=== PATIENT | female | born 1985 | race Caucasian/White ===

== ENCOUNTER 2016-09-09 10:06 | Inpatient (IN) | payer OTHER ==
[2016-09-09 10:59] VITALS: BMI 24.7
--- NOTE | 2016-09-09 13:22 | HP ---
CIWA Score - CIWA Score Nausea/Vomitin-No Nausea/No Vomiting Muscle Tremors: 4-Moderate,w/Arms Extend Anxiety: 4-Mod. Anxious/Guarded Agitation: 3 Paroxysmal Sweats: 1-Minimal Palms Moist Orientation: 0-Oriented Tacttile Disturbances: 3-Moderate Itch/Numb/Burn Auditory Disturbances: 0-None Visual Disturbances: 0-None Headache: 2-Mild CIWA-Ar Total Score: 17 Admission ROS S - HPI Chief Complaint: DETOX TX FOR XANAX/KLONOPIN DEPENDENCE Allergies/Adverse Reactions: Allergies Allergy/AdvReac Type Severity Reaction Status Date / Time No Known Allergies Allergy Verified 09/09/16 11:44 History of Present Illness: 31 Y/O FEMALE WITH A HX OF XANAX/KLONOPIN, AND MARIUANA DEPENDENCE AND SPORADIC PCP USE. Exam Limitations: No Limitations - Ebola screening Have you traveled outside of the country in the last 21 days: No Have you had contact with anyone from an Ebola affected area: No Have you been sick,other than usual withdrawal symptoms: No Do you have a fever: No - Review of Systems Constitutional: Chills, Loss of Appetite, Night Sweats, Changes in sleep, Unintentional Wgt. Loss EENT: reports: Blurred Vision, Tearing, Nose Congestion, Dental Problems ( MISSING TEETH) Respiratory: reports: Shortness of Breath (USES SPIRIVA AND ALBUTEROL), Wheezing Cardiac: reports: Lightheadedness GI: reports: Constipated, Diarrhea, Nausea, Poor Appetite, Poor Fluid Intake, Vomiting, Abdominal cramping : reports: No Symptoms Reported Musculoskeletal: reports: Back Pain, Joint Pain, Muscle Pain, Other (HX SCIATICA ) Integumentary: reports: No Symptoms Reported Neuro: reports: Headache, Tremors, Unsteady Gait, Dizziness Endocrine: reports: No Symptoms Reported Hematology: reports: Anemia Psychiatric: reports: Orientated x3, Anxious, Depressed Other Systems: Reviewed and Negative Patient History - Patient Medical History Hx Anemia: No Hx Asthma: Yes (currently not on medication;SPIRIVA/ALBUTEROL IN THE PAST) Hx Chronic Obstructive Pulmonary Disease (COPD): No Hx Cancer: No Hx Cardiac Disorders: No Hx Congestive Heart Failure: No Hx Hypertension: Yes (WITHDRAWAL SX) Hx Hypercholesterolemia: No Hx Pacemaker: No HX Cerebrovascular Accident: No Hx Seizures: Yes (STATES DUE TO WITHDRAWAL SX) Hx Dementia: No Hx Diabetes: No Hx Gastrointestinal Disorders: No Hx Liver Disease: No Hx Genitourinary Disorders: No Hx Sexually Transmitted Disorders: No (chlamydia at age 22) Hx Renal Disease (ESRD): No Hx Thyroid Disease: No Hx Human Immunodeficiency Virus (HIV): No (06/01 last tested;NEGATIVE HX) Hx Hepatitis C: No Hx Depression: Yes (AND ANXIETY; NO CURRENT MED) Hx Suicide Attempt: No (DENIES) Hx Bipolar Disorder: No Hx Schizophrenia: No - Patient Surgical History Past Surgical History: Yes Hx Neurologic Surgery: No Hx Cataract Extraction: No Hx Cardiac Surgery: No Hx Lung Surgery: No Hx Breast Surgery: No Hx Breast Biopsy: No Hx Abdominal Surgery: No Hx Appendectomy: No Hx Cholecystectomy: No Hx Genitourinary Surgery: Yes (removal of ovarian cyst in ) Hx Section: No Hx Orthopedic Surgery: No Hx Hysterectomy: No Other Surgical History: tonsillectomy at age 8 Anesthesia Reaction: No - PPD History Previous Implant?: Yes Documented Results: Negative w/proof Implanted On Prior [facility] Admission?: Yes Date: 11/25/15 Results: 0 mm PPD to be Administered?: No - Reproductive History Patient is a Female of Child Bearing Age (11 -55 yrs old): Yes Last Menstrual Period: 08/07/16 Patient : No - Smoking Cessation Smoking history: Current every day smoker Have you smoked in the past 12 months: Yes Aproximately how many cigarettes per day: 20 Cigars Per Day: 0 Hx Chewing Tobacco Use: No Initiated information on smoking cessation: Yes 'Breaking Loose' booklet given: 09/09/16 - Substance & Tx. History Hx Alcohol Use: Yes (OCCASSIONAL USE) Hx Substance Use: (XANAX/KLONOPIN/MARIJUANA/PCP(ON OCCASSION)) Substance Use Type: Marijuana, Tranquilizers Hx Substance Use Treatment: Yes ([facility] 100 MG PO DAILY) - Substances Abused PCP Route: Smoking Frequency: 1-3 times last 30 days Amount used: $10 Age of first use: 18 Date of Last Use: 09/08/16 Klonopin Route: Oral Frequency: Daily Amount used: 4 mg. Age of first use: 30 Date of Last Use: 09/08/16 Xanax Route: Oral Frequency: 3-6 times per week Amount used: 5 mg. Age of first use: 30 Date of Last Use: 09/08/16 Marijuana Route: Smoking Frequency: 3-6 times per week Amount used: $5 Age of first use: 15 Date of Last Use: 09/05/16 Family Disease History - Family Disease History Family Disease History: Other: Father (alcohol,dsa), Mother (alcohol ) Admission Physical Exam [facility] - Vital Signs Vital Signs: Vital Signs - 24 hr 09/09/16 10:56 Temperature 97.8 F Pulse Rate 91 H Respiratory 20 Rate Blood Pressure 135/95 - Physical General Appearance: Yes: Moderate Distress, Irritable, Anxious HEENTM: Yes: EOMI, Normocephalic, SEJAL, Pharynx Normal Respiratory: Yes: Chest Non-Tender, Lungs Clear, Normal Breath Sounds, No Respiratory Distress Neck: Yes: Supple, Trachea in good position Breast: Yes: Breast Exam Deferred Cardiology: Yes: Regular Rhythm, Regular Rate, S1, S2 Abdominal: Yes: Normal Bowel Sounds, Non Tender, Flat, Soft Genitourinary: Yes: Other (N/C) Back: Yes: Within Normal Limits Musculoskeletal: Yes: full range of Motion, Gait Steady Extremities: Yes: Normal Range of Motion, Non-Tender 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 NML intact, Fully Oriented, Alert, Motor Strength 5/5 Integumentary: Yes: Dry, Warm Lymphatic: Yes: Within Normal Limits - Diagnostic (1) Nicotine dependence Current Visit: Yes Status: Acute Qualifiers: Nicotine product type: cigarettes Substance use status: in withdrawal Qualified Code(s): F17.213 - Nicotine dependence, cigarettes, with withdrawal (2) Seizure Current Visit: Yes Status: Suspected Comment: NOT SURE, BUT STATES DUE TO WITHDRAWAL SX (3) Sedative, hypnotic or anxiolytic dependence with withdrawal, uncomplicated Current Visit: Yes Status: Acute (4) Methadone maintenance therapy patient Current Visit: Yes Status: Chronic (5) Cannabis dependence, uncomplicated Current Visit: Yes Status: Acute (6) PCP abuse Current Visit: Yes Status: Acute Cleared for Admission [facility] - Detox or Rehab [facility] Level of Care: Medically Managed Detox Regimen/Protocol: Valium [facility] Breath Alcohol Content Breath Alcohol Content: 0 Urine Pregancy Test - Result Urine Test Results: Negative- NO Line Present Urine Drug Screen - Results Drug Screen Negative: No Urine Drug Screen Results: THC-Marijuana, PCP-Phencyclidine, BZO-Benzodiazepines , MTD-Methadone, TCA-Tricyclic Antidepress
[2016-09-09] MEDS ORDERED: ACETAMINOPHEN 325 MG TABLET (FP) PO PRN (13:36)
[2016-09-09] MEDS ORDERED: diphenhydrAMINE HCL 50 MG CAPSULE PO PRN (13:36)
[2016-09-09] MEDS ORDERED: MAGNESIUM HYDROX 2400MG/30ML ORAL SUSPENSION 30 ML CUP PO PRN (13:36)
[2016-09-09] MEDS ORDERED: hydrOXYzine PAMOATE 25 MG CAPSULE (FP) PO PRN (13:36)
[2016-09-09] MEDS ORDERED: MENTHOL/PHENOL 1 EACH UD MM PRN (13:36)
[2016-09-09] MEDS ORDERED: guaiFENesin/D-METHORPHAN HB 10 ML UNIT-DOSE CUPS PO PRN (13:36)
[2016-09-09] MEDS ORDERED: MAG HYDROX/AL HYDROX/SIMETH 30 ML UNIT-DOSE CUP PO PRN (13:36)
[2016-09-09] MEDS ORDERED: LOPERAMIDE HCL 2 MG CAPSULE PO PRN (13:36)
[2016-09-09] MEDS ORDERED: P-EPHED 60MG/TRIPROLIDI 2.5MG TABLET PO PRN (13:36)
[2016-09-09] MEDS ORDERED: MAGNESIUM CITRATE 300 ML BOTTLE PO PRN (13:36)
[2016-09-09] MEDS ORDERED: diazePAM 5 MG TABLET PO ONE (13:52)
[2016-09-09] MEDS: diazePAM 5 MG TABLET PO SCH ×2 (14:06→22:39)
[2016-09-09] MEDS: NICOTINE 21 MG/24 HOURS TOPICAL PATCH TD SCH (14:07)
[2016-09-09 16:48] LABS: URINE APPEARANCE SLCLOUDY; URINE BLOOD NEGATIVE (NEGATIVE); URINE COLOR DKYELLOW; URINE GLUCOSE (UA) NEGATIVE (NEGATIVE); URINE KETONE TRACE (NEGATIVE); URINE NITRITE NEGATIVE (NEGATIVE); URINE UROBILINOGEN 2.0 E.U/dl E.U./dl (0.2-1.0)
[2016-09-09] MEDS: diazePAM 5 MG TABLET PO PRN (17:16)
[2016-09-09 17:32] LABS: URINE LEUK ESTERASE TRACE (NEGATIVE); URINE PROTEIN 1+ (NEGATIVE)
[2016-09-09 17:36] LABS: CALCIUM OXALATE CRYSTALS FEW /hpf (NONE SEEN); URINE MUCUS MANY; URINE RBC 3 /hpf (0-3); URINE WBC 1 /hpf (3-5)
[2016-09-09] MEDS: THIAMINE HCL 100 MG TABLET (FP) PO SCH (22:40)
[2016-09-10] MEDS ORDERED: METHADONE HCL 10 MG TABLET ONE (04:38)
[2016-09-10] MEDS ORDERED: METHADONE HCL 40 MG DISPERSABLE TABLET ONE (04:39)
[2016-09-10] MEDS: diazePAM 5 MG TABLET PO PRN ×4 (05:38→19:43)
[2016-09-10] MEDS: METHADONE 80 MG, METHADONE 20 MG PO SCH (05:38)
[2016-09-10] MEDS ORDERED: METHADONE HCL 10 MG TABLET PO SCH (06:00)
[2016-09-10] MEDS: diazePAM 5 MG TABLET PO SCH ×3 (06:29→22:50)
--- NOTE | 2016-09-10 07:43 | CONSULT ---
[facility] Psychiatric Consult - Data Date of interview: 09/10/16 Admission source: [facility] Identifying data: This is 31 years old female with no psychiatric hospitalization history intoxicated with : Cannabis, Xanax, PCP, Alcohol Substance Abuse History: - Smoking Cessation. Smoking history: Current every day smoker. Have you smoked in the past 12 months: Yes. Aproximately how many cigarettes per day: 20. Cigars Per Day: 0. Hx Chewing Tobacco Use: No. Initiated information on smoking cessation: Yes. 'Breaking Loose' booklet given : 09/09/16. - Substance & Tx. History. Hx Alcohol Use: Yes (OCCASSIONAL USE). Hx Substance Use: (XANAX/KLONOPIN/MARIJUANA/PCP(ON OCCASSION)). Substance Use Type: Marijuana, Tranquilizers. Hx Substance Use Treatment: Yes ([facility]- MMTP 100 MG PO DAILY). - Substances Abused. PCP. Route: Smoking. Frequency: 1-3 times last 30 days. Amount used: $10. Age of first use: 18. Date of Last Use: 09/08/16. Klonopin. Route: Oral. Frequency: Daily. Amount used: 4 mg. Age of first use: 30. Date of Last Use: 09/08/16. Xanax. Route: Oral. Frequency: 3-6 times per week. Amount used: 5 mg. Age of first use: 30. Date of Last Use: 09/08/16. Marijuana. Route: Smoking. Frequency: 3-6 times per week. Amount used: $5. Age of first use: 15. Date of Last Use: 09/05/16 Medical History: Seizure history, Syncope history, Weight loss history Psychiatric History: Patient reports insomnia and anxiety history, reports takinmg prior to admsision: Seroquel 50mg po qhs Physical/Sexual Abuse/Trauma History: Denies Additional Comment: Seroquel 50mg po qhs Mental Status Exam - Mental Status Exam Alert and Oriented to: Person Cognitive Function: Fair Patient Appearance: Unkempt Mood: Anxious Affect: Mood Congruent Patient Behavior: Cooperative Speech Pattern: Appropriate Voice Loudness: Normal Thought Process: Goal Oriented Thought Disorder: Being Controlled Hallucinations: Denies Suicidal Ideation: Denies Homicidal Ideation: Denies Insight/Judgement: Fair Sleep: Difficulty falling asleep Appetite: Fair Muscle strength/Tone: Normal Gait/Station: Normal Additional Comments: Seroquel 50mg po qhs Psychiatric Findings - Problem List ([place] 1, 2,3) (1) Cannabis dependence, uncomplicated Current Visit: Yes Status: Acute (2) Nicotine dependence Current Visit: Yes Status: Acute Qualifiers: Nicotine product type: cigarettes Substance use status: in withdrawal Qualified Code(s): F17.213 - Nicotine dependence, cigarettes, with withdrawal (3) PCP abuse Current Visit: Yes Status: Acute (4) Sedative, hypnotic or anxiolytic dependence with withdrawal, uncomplicated Current Visit: Yes Status: Acute (5) Methadone maintenance therapy patient Current Visit: Yes Status: Chronic (6) Opioid dependence Current Visit: No Status: Active (7) Alcohol dependence Current Visit: No Status: Acute (8) Alcohol-induced mood disorder Current Visit: No Status: Acute (9) Alcohol-induced sleep disorder Current Visit: No Status: Acute (10) Drug-induced mood disorder Current Visit: Yes Status: Acute - Initial Treatment Plan Initial Treatment Plan: Seroquel 50mg po qhs
[2016-09-10 10:20] LABS: MCH 28.3 pg (25.7-33.7); MCHC 32.5 g/dl (32.0-36.0); MEAN CELL VOLUME 87.1 fl (80-96); MEAN PLT VOLUME 9.4 fl (7.5-11.1); PLATELET COUNT 264 K/MM3 (134-434); RDW 15.7 % (11.6-15.6); WHITE BLOOD COUNT 8.8 K/mm3 (4.0-10.0)
[2016-09-10] MEDS: PRENATAL VITAMINS W/ FOLIC ACID TABLET (FP) PO SCH (10:31)
[2016-09-10] MEDS: NICOTINE 21 MG/24 HOURS TOPICAL PATCH TD SCH (10:32)
[2016-09-10 10:45] LABS: ALBUMIN 4.4 g/dl (3.4-5.0); ALK PHOS 116 U/L (45-117); ANION GAP 6 (8-16); BILIRUBIN,TOTAL 0.7 mg/dL (0.2-1.0); CALCIUM 9.6 mg/dL (8.5-10.1); CO2 30 mmol/L (21-32); GLUCOSE,RANDOM 74 mg/dL (74-106); SGOT/AST 15 U/L (15-37); SGPT/ALT 15 U/L (12-78); TOT PROT 7.7 g/dl (6.4-8.2)
--- NOTE | 2016-09-10 11:49 | PN ---
S CIWA - CIWA Score Nausea/Vomitin-No Nausea/No Vomiting Muscle Tremors: 4-Moderate,w/Arms Extend Anxiety: 4-Mod. Anxious/Guarded Agitation: 4-Moderately Restless Paroxysmal Sweats: 3 Orientation: 0-Oriented Tacttile Disturbances: 0-None Auditory Disturbances: 0-None Visual Disturbances: 0-None Headache: 1-Very Mild CIWA-Ar Total Score: 16 [facility] Progress Note (SOAP) Subjective: sweats shakes interrupted sleep agitation anxiety i want ensure Objective: 09/10/16 11:45 Vital Signs Temperature 98.2 F 09/10/16 10:29 Pulse Rate 61 09/10/16 10:29 Respiratory Rate 20 09/10/16 10:29 Blood Pressure 110/72 09/10/16 10:29 O2 Sat by Pulse Oximetry (%) Laboratory Tests 09/09/16 09/10/16 09/10/16 14:00 06:20 06:20 WBC 8.8 RBC 5.04 Hgb 14.3 Hct 43.9 MCV 87.1 MCHC 32.5 RDW 15.7 H Plt Count 264 MPV 9.4 Sodium 142 Potassium 4.4 Chloride 106 Carbon Dioxide 30 Anion Gap 6 L BUN 9 D Creatinine 1.0 Creat Clearance w eGFR > 60 Random Glucose 74 D Calcium 9.6 Total Bilirubin 0.7 D AST 15 D ALT 15 D Alkaline Phosphatase 116 Total Protein 7.7 Albumin 4.4 Urine Color Dkyellow Urine Appearance Slcloudy Urine pH 5.0 Ur Specific [place] 1.028 Urine Protein 1+ H Urine Glucose (UA) Negative Urine Ketones Trace H Urine Blood Negative Urine Nitrite Negative Urine Bilirubin 2.0 Urine Urobilinogen 2.0 e.u/dl H Ur Leukocyte Esterase Trace H D Urine RBC 3 Urine WBC 1 Ur Epithelial Cells Few Calcium Oxalate Crystal Few Urine Mucus Many awake/alert ambulating no acute distress repeat u/a Assessment: 09/10/16 11:47 withdrawal sx Plan: continue detox increase fluids ensure plus bid f/u u/a
[2016-09-10] MEDS: NICOTINE POLACRILEX 4 MG GUM BUC PRN ×3 (13:19→22:53)
[2016-09-10 14:44] LABS: URINE APPEARANCE SLCLOUDY; URINE BILIRUBIN NEGATIVE (NEGATIVE); URINE BLOOD NEGATIVE (NEGATIVE); URINE COLOR YELLOW; URINE GLUCOSE (UA) NEGATIVE (NEGATIVE); URINE KETONE NEGATIVE (NEGATIVE); URINE LEUK ESTERASE TRACE (NEGATIVE); URINE NITRITE NEGATIVE (NEGATIVE); URINE PROTEIN NEGATIVE (NEGATIVE); URINE UROBILINOGEN 2.0 E.U/dl E.U./dl (0.2-1.0)
[2016-09-10 15:19] LABS: URINE MUCUS MODERATE; URINE RBC 1 /hpf (0-3); URINE WBC <1 /hpf (3-5)
--- NOTE | 2016-09-10 16:12 | EKG ---
Test Reason : Blood Pressure : / mmHG Vent. Rate : 048 BPM Atrial Rate : 048 BPM P-R Int : 126 ms QRS Dur : 084 ms QT Int : 492 ms P-R-T Axes : 065 062 037 degrees QTc Int : 439 ms SINUS BRADYCARDIA POSSIBLE LEFT ATRIAL ENLARGEMENT NONSPECIFIC ST AND T WAVE ABNORMALITY ABNORMAL ECG NO PREVIOUS ECGS AVAILABLE Confirmed by GER CÁRDENAS MD ([id number]) on 09/10/2016 4:12:35 PM Referred By: Confirmed By:GER CÁRDENAS MD
[2016-09-10] MEDS: IBUPROFEN 400 MG TABLET (FP) PO PRN (16:21)
[2016-09-10] MEDS: QUEtiapine FUMARATE 50 MG TABLET PO SCH (22:50)
[2016-09-10] MEDS: THIAMINE HCL 100 MG TABLET (FP) PO SCH (22:50)
[2016-09-11] MEDS: diazePAM 5 MG TABLET PO PRN ×4 (01:12→19:10)
[2016-09-11] MEDS: NICOTINE POLACRILEX 4 MG GUM BUC PRN ×5 (01:16→19:10)
[2016-09-11] MEDS ORDERED: METHADONE HCL 40 MG DISPERSABLE TABLET ONE (05:03)
[2016-09-11] MEDS ORDERED: METHADONE HCL 10 MG TABLET ONE (05:03)
[2016-09-11] MEDS: METHADONE 80 MG, METHADONE 20 MG PO SCH (05:41)
[2016-09-11] MEDS: IBUPROFEN 400 MG TABLET (FP) PO PRN (07:06)
--- NOTE | 2016-09-11 10:27 | PN ---
[facility] Progress Note (SOAP) Subjective: interrupted sleep, sweats , lbp Objective: 09/11/16 10:27 Vital Signs Temperature 97.6 F 09/11/16 09:55 Pulse Rate 76 09/11/16 09:55 Respiratory Rate 20 09/11/16 09:55 Blood Pressure 114/60 09/11/16 09:55 O2 Sat by Pulse Oximetry (%) Laboratory Tests 09/09/16 09/10/16 09/10/16 14:00 06:20 06:20 WBC 8.8 RBC 5.04 Hgb 14.3 Hct 43.9 MCV 87.1 MCHC 32.5 RDW 15.7 H Plt Count 264 MPV 9.4 Sodium 142 Potassium 4.4 Chloride 106 Carbon Dioxide 30 Anion Gap 6 L BUN 9 D Creatinine 1.0 Creat Clearance w eGFR > 60 Random Glucose 74 D Calcium 9.6 Total Bilirubin 0.7 D AST 15 D ALT 15 D Alkaline Phosphatase 116 Total Protein 7.7 Albumin 4.4 Urine Color Dkyellow Urine Appearance Slcloudy Urine pH 5.0 Ur Specific [place] 1.028 Urine Protein 1+ H Urine Glucose (UA) Negative Urine Ketones Trace H Urine Blood Negative Urine Nitrite Negative Urine Bilirubin 2.0 Urine Urobilinogen 2.0 e.u/dl H Ur Leukocyte Esterase Trace H D Urine RBC 3 Urine WBC 1 Ur Epithelial Cells Few Calcium Oxalate Crystal Few Urine Mucus Many RPR Titer 09/10/16 09/10/16 06:20 13:15 WBC RBC Hgb Hct MCV MCHC RDW Plt Count MPV Sodium Potassium Chloride Carbon Dioxide Anion Gap BUN Creatinine Creat Clearance w eGFR Random Glucose Calcium Total Bilirubin AST ALT Alkaline Phosphatase Total Protein Albumin Urine Color Yellow Urine Appearance Slcloudy Urine pH 5.0 Ur Specific [place] 1.024 Urine Protein Negative Urine Glucose (UA) Negative Urine Ketones Negative Urine Blood Negative Urine Nitrite Negative Urine Bilirubin Negative Urine Urobilinogen 2.0 e.u/dl H Ur Leukocyte Esterase Trace H Urine RBC 1 Urine WBC <1 Ur Epithelial Cells Moderate Calcium Oxalate Crystal Urine Mucus Moderate RPR Titer Nonreactive 09/11/16 11:47 pt aox3 in nad ambulating , anxious Assessment: 09/11/16 10:27 withdrawal sx;s Plan: cont. detox increase fluids d/c in am -pt going to rehab
[2016-09-11] MEDS: PRENATAL VITAMINS W/ FOLIC ACID TABLET (FP) PO SCH (10:32)
[2016-09-11] MEDS: NICOTINE 21 MG/24 HOURS TOPICAL PATCH TD SCH (10:32)
[2016-09-11] MEDS: diazePAM 5 MG TABLET PO SCH ×2 (10:34→22:28)
[2016-09-11] MEDS: THIAMINE HCL 100 MG TABLET (FP) PO SCH (22:27)
[2016-09-11] MEDS: QUEtiapine FUMARATE 50 MG TABLET PO SCH (22:27)
[2016-09-12] MEDS: diazePAM 5 MG TABLET PO PRN ×3 (01:07→12:58)
[2016-09-12] MEDS ORDERED: METHADONE HCL 10 MG TABLET ONE (04:52)
[2016-09-12] MEDS ORDERED: METHADONE HCL 40 MG DISPERSABLE TABLET ONE (04:53)
[2016-09-12] MEDS: METHADONE 80 MG, METHADONE 20 MG PO SCH (05:38)
[2016-09-12] MEDS: IBUPROFEN 400 MG TABLET (FP) PO PRN (07:37)
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
[2016-09-12] MEDS: PRENATAL VITAMINS W/ FOLIC ACID TABLET (FP) PO SCH (10:31)
[2016-09-12] MEDS: diazePAM 5 MG TABLET PO SCH ×2 (10:31→22:28)
[2016-09-12] MEDS: NICOTINE 21 MG/24 HOURS TOPICAL PATCH TD SCH (10:32)
[2016-09-12] MEDS: SILVER SULFADIAZINE 1% TOP CREAM 50 GM JAR TP SCH ×2 (10:38→22:31)
--- NOTE | 2016-09-12 12:25 | PN ---
[facility] Progress Note (SOAP) Subjective: Sweating, Fatigue, Body aches, Back Ache. Pt. denies any unusual urinary symptoms (burning, pain, frequency, lower abdominal discomfort). Objective: PT. A & O X 3, OBSERVED AMBULATING ON UNIT. 09/12/16 12:23 Vital Signs Temperature 98.6 F 09/12/16 10:03 Pulse Rate 67 09/12/16 10:03 Respiratory Rate 20 09/12/16 10:03 Blood Pressure 112/68 09/12/16 10:03 O2 Sat by Pulse Oximetry (%) Laboratory Last Values WBC 8.8 K/mm3 (4.0-10.0) 09/10/16 06:20 RBC 5.04 M/mm3 (3.60-5.2) 09/10/16 06:20 Hgb 14.3 GM/dL (10.7-15.3) 09/10/16 06:20 Hct 43.9 % (32.4-45.2) 09/10/16 06:20 MCV 87.1 fl (80-96) 09/10/16 06:20 MCHC 32.5 g/dl (32.0-36.0) 09/10/16 06:20 RDW 15.7 % (11.6-15.6) H 09/10/16 06:20 Plt Count 264 K/MM3 (134-434) 09/10/16 06:20 MPV 9.4 fl (7.5-11.1) 09/10/16 06:20 Sodium 142 mmol/L (136-145) 09/10/16 06:20 Potassium 4.4 mmol/L (3.5-5.1) 09/10/16 06:20 Chloride 106 mmol/L (98-107) 09/10/16 06:20 Carbon Dioxide 30 mmol/L (21-32) 09/10/16 06:20 Anion Gap 6 (8-16) L 09/10/16 06:20 BUN 9 mg/dL (7-18) D 09/10/16 06:20 Creatinine 1.0 mg/dL (0.55-1.02) 09/10/16 06:20 Creat Clearance w eGFR > 60 (>60) 09/10/16 06:20 Random Glucose 74 mg/dL (74-106) D 09/10/16 06:20 Calcium 9.6 mg/dL (8.5-10.1) 09/10/16 06:20 Total Bilirubin 0.7 mg/dL (0.2-1.0) D 09/10/16 06:20 AST 15 U/L (15-37) D 09/10/16 06:20 ALT 15 U/L (12-78) D 09/10/16 06:20 Alkaline Phosphatase 116 U/L (45-117) 09/10/16 06:20 Total Protein 7.7 g/dl (6.4-8.2) 09/10/16 06:20 Albumin 4.4 g/dl (3.4-5.0) 09/10/16 06:20 Urine Color Yellow 09/10/16 13:15 Urine Appearance Slcloudy 09/10/16 13:15 Urine pH 5.0 (5.0-8.0) 09/10/16 13:15 Ur Specific [place] 1.024 (1.001-1.035) 09/10/16 13:15 Urine Protein Negative (NEGATIVE) 09/10/16 13:15 Urine Glucose (UA) Negative (NEGATIVE) 09/10/16 13:15 Urine Ketones Negative (NEGATIVE) 09/10/16 13:15 Urine Blood Negative (NEGATIVE) 09/10/16 13:15 Urine Nitrite Negative (NEGATIVE) 09/10/16 13:15 Urine Bilirubin Negative (NEGATIVE) 09/10/16 13:15 Urine Urobilinogen 2.0 e.u/dl E.U./dl (0.2-1.0) H 09/10/16 13:15 Ur Leukocyte Esterase Trace (NEGATIVE) H 09/10/16 13:15 Urine RBC 1 /hpf (0-3) 09/10/16 13:15 Urine WBC <1 /hpf (3-5) 09/10/16 13:15 Ur Epithelial Cells Moderate /hpf (FEW) 09/10/16 13:15 Calcium Oxalate Crystal Few /hpf (NONE SEEN) 09/09/16 14:00 Urine Mucus Moderate 09/10/16 13:15 RPR Titer Nonreactive (NONREACTIVE) 09/10/16 06:20 LABS NOTED. Assessment: 09/12/16 12:25 WITHDRAWAL SYMPTOMS. Plan: CONTINUE DETOX. INCREASE PO FLUIDS.
[2016-09-12] MEDS: NICOTINE POLACRILEX 4 MG GUM BUC PRN ×2 (13:02→22:31)
[2016-09-12] MEDS: QUEtiapine FUMARATE 50 MG TABLET PO SCH (22:28)
[2016-09-12] MEDS: THIAMINE HCL 100 MG TABLET (FP) PO SCH (22:28)
[2016-09-13] MEDS ORDERED: METHADONE HCL 10 MG TABLET ONE (04:55)
[2016-09-13] MEDS ORDERED: METHADONE HCL 40 MG DISPERSABLE TABLET ONE (04:55)
[2016-09-13] MEDS: METHADONE 80 MG, METHADONE 20 MG PO SCH (06:12)
[2016-09-13 06:59] VITALS: BP 134/85; PULSE 85; TEMP 97.3
[2016-09-13] MEDS ORDERED: diazePAM 5 MG TABLET PO SCH (10:00)
--- NOTE | 2016-09-13 11:07 | DS ---
[facility] Detox Discharge Summary Admission Date: 09/09/16 Discharge Date: 09/13/16 - History Present History: Alcohol Dependence Pertinent Past History: Asthma, HTN, seizures - Physical Exam Results Vital Signs: Vital Signs Temperature 97.3 F L 09/13/16 06:00 Pulse Rate 85 09/13/16 06:00 Respiratory Rate 18 09/13/16 06:00 Blood Pressure 134/85 09/13/16 06:00 O2 Sat by Pulse Oximetry (%) Pertinent Admission Physical Exam Findings: withdrawal sx Laboratory Last Values WBC 8.8 K/mm3 (4.0-10.0) 09/10/16 06:20 RBC 5.04 M/mm3 (3.60-5.2) 09/10/16 06:20 Hgb 14.3 GM/dL (10.7-15.3) 09/10/16 06:20 Hct 43.9 % (32.4-45.2) 09/10/16 06:20 MCV 87.1 fl (80-96) 09/10/16 06:20 MCHC 32.5 g/dl (32.0-36.0) 09/10/16 06:20 RDW 15.7 % (11.6-15.6) H 09/10/16 06:20 Plt Count 264 K/MM3 (134-434) 09/10/16 06:20 MPV 9.4 fl (7.5-11.1) 09/10/16 06:20 Sodium 142 mmol/L (136-145) 09/10/16 06:20 Potassium 4.4 mmol/L (3.5-5.1) 09/10/16 06:20 Chloride 106 mmol/L (98-107) 09/10/16 06:20 Carbon Dioxide 30 mmol/L (21-32) 09/10/16 06:20 Anion Gap 6 (8-16) L 09/10/16 06:20 BUN 9 mg/dL (7-18) D 09/10/16 06:20 Creatinine 1.0 mg/dL (0.55-1.02) 09/10/16 06:20 Creat Clearance w eGFR > 60 (>60) 09/10/16 06:20 Random Glucose 74 mg/dL (74-106) D 09/10/16 06:20 Calcium 9.6 mg/dL (8.5-10.1) 09/10/16 06:20 Total Bilirubin 0.7 mg/dL (0.2-1.0) D 09/10/16 06:20 AST 15 U/L (15-37) D 09/10/16 06:20 ALT 15 U/L (12-78) D 09/10/16 06:20 Alkaline Phosphatase 116 U/L (45-117) 09/10/16 06:20 Total Protein 7.7 g/dl (6.4-8.2) 09/10/16 06:20 Albumin 4.4 g/dl (3.4-5.0) 09/10/16 06:20 Urine Color Yellow 09/10/16 13:15 Urine Appearance Slcloudy 09/10/16 13:15 Urine pH 5.0 (5.0-8.0) 09/10/16 13:15 Ur Specific [place] 1.024 (1.001-1.035) 09/10/16 13:15 Urine Protein Negative (NEGATIVE) 09/10/16 13:15 Urine Glucose (UA) Negative (NEGATIVE) 09/10/16 13:15 Urine Ketones Negative (NEGATIVE) 09/10/16 13:15 Urine Blood Negative (NEGATIVE) 09/10/16 13:15 Urine Nitrite Negative (NEGATIVE) 09/10/16 13:15 Urine Bilirubin Negative (NEGATIVE) 09/10/16 13:15 Urine Urobilinogen 2.0 e.u/dl E.U./dl (0.2-1.0) H 09/10/16 13:15 Ur Leukocyte Esterase Trace (NEGATIVE) H 09/10/16 13:15 Urine RBC 1 /hpf (0-3) 09/10/16 13:15 Urine WBC <1 /hpf (3-5) 09/10/16 13:15 Ur Epithelial Cells Moderate /hpf (FEW) 09/10/16 13:15 Calcium Oxalate Crystal Few /hpf (NONE SEEN) 09/09/16 14:00 Urine Mucus Moderate 09/10/16 13:15 RPR Titer Nonreactive (NONREACTIVE) 09/10/16 06:20 Labs noted - Treatment Hospital Course: Detox Protocol Followed, Detoxed Safely, Responded well, Discharged Condition Good - Medication Discharge Medications: Ambulatory Orders Quetiapine Fumarate [Seroquel -] 50 mg PO HS PRN 09/09/16 Quetiapine Fumarate [Seroquel -] 50 mg PO HS #30 tablet 09/10/16 - Diagnosis (1) Alcohol dependence Status: Acute Qualifiers: Substance use status: in withdrawal Complication of substance-induced condition: uncomplicated Qualified Code(s): F10.230 - Alcohol dependence with withdrawal, uncomplicated (2) Cannabis dependence, uncomplicated Status: Acute (3) Drug-induced mood disorder Status: Acute (4) Insomnia secondary to depression with anxiety Status: Acute (5) Nicotine dependence Status: Acute Qualifiers: Nicotine product type: cigarettes Substance use status: in withdrawal Qualified Code(s): F17.213 - Nicotine dependence, cigarettes, with withdrawal - AMA Did Patient Leave Against Medical Advice: No
== END 2016-09-13 10:03 | disposition home or self-care (01) | DRG 773 ==
LOC: YASAS 10:06 → Y6N 13:07
PROVIDERS: ADMIT Internal Medicine Addiction Medicine; ATTEND Internal Medicine Addiction Medicine
PROC: HZ2ZZZZ Detoxification Services for Substance Abuse Treatment (ICD-10-PCS; principal; 2016-09-09)
PROC: 2W2KX4Z Dressing of Left Finger using Bandage (ICD-10-PCS; 2016-09-09)
DX: F13.230 Sedative, hypnotic or anxiolytic dependence with withdrawal, uncomplicated (principal); F11.20 Opioid dependence, uncomplicated; F10.24 Alcohol dependence with alcohol-induced mood disorder; F10.282 Alcohol dependence with alcohol-induced sleep disorder; F16.10 Hallucinogen abuse, uncomplicated; F19.24 Other psychoactive substance dependence with psychoactive substance-induced mood disorder; F17.210 Nicotine dependence, cigarettes, uncomplicated; F51.05 Insomnia due to other mental disorder; J45.909 Unspecified asthma, uncomplicated; I10 Essential (primary) hypertension; Z86.69 Personal history of other diseases of the nervous system and sense organs; Z86.79 Personal history of other diseases of the circulatory system; Z87.898 Personal history of other specified conditions; Z87.42 Personal history of other diseases of the female genital tract; T23.132A Burn of first degree of multiple left fingers (nail), not including thumb, initial encounter; T31.0 Burns involving less than 10% of body surface; X10.0XXA Contact with hot drinks, initial encounter; Y93.89 Activity, other specified; Y92.239 Unspecified place in hospital as the place of occurrence of the external cause
CPT/HCPCS: 36415; 80053; 81003; 81015; 85027; 86593; 93005; 93010

== ENCOUNTER 2017-07-17 12:12 | Inpatient (IN) | payer OTHER ==
[2017-07-17 13:58] VITALS: BMI 30.6
--- NOTE | 2017-07-17 17:39 | HP ---
CIWA Score - CIWA Score Nausea/Vomitin-Mild Nausea/No Vomiting Muscle Tremors: 2 Anxiety: 3 Agitation: 2 Paroxysmal Sweats: 2 Orientation: 1-Uncertain about Date Tacttile Disturbances: 1-Very Mild Itch/Numbness Auditory Disturbances: 1-Very Mild Visual Disturbances: 1-Very Mild Sensitivity Headache: 2-Mild CIWA-Ar Total Score: 16 Admission ROS BHS - HPI Chief Complaint: WITHDRAWAL SYMPTOMS Allergies/Adverse Reactions: Allergies Allergy/AdvReac Type Severity Reaction Status Date / Time No Known Allergies Allergy Verified 07/17/17 15:42 History of Present Illness: 32 Y.O. WOMAN WITH A EXTENSIVE HISTORY OF BENZODIAZEPINE DEPENDENCE IS HERE SEEKING DETOX. SHE HAS HAD MULTIPLE ADMISSION HERE FOR DETOX WITH THE LAST BEING IN 08/2016. SHE IS CURRENTLY ENROLLED IN A MMTP AND REPORTS LDM ON AT 120MG OF METHADONE. LONGEST PERIOD CLEAN HAS BEEN 7 MONTHS. Exam Limitations: No Limitations - Ebola screening Have you traveled outside of the country in the last 21 days: No (N) Have you had contact with anyone from an Ebola affected area: No Have you been sick,other than usual withdrawal symptoms: No Do you have a fever: No - Review of Systems Constitutional: Chills, Night Sweats, Changes in sleep EENT: reports: Tearing, Nose Congestion Respiratory: reports: Shortness of Breath, Wheezing Cardiac: reports: Lightheadedness GI: reports: No Symptoms Reported : reports: No Symptoms Reported Musculoskeletal: reports: Back Pain Integumentary: reports: No Symptoms Reported Neuro: reports: Headache, Tremors Endocrine: reports: No Symptoms Reported Hematology: reports: No Symptoms Reported Psychiatric: reports: Anxious, Depressed Other Systems: Reviewed and Negative Patient History - Patient Medical History Hx Anemia: No Hx Asthma: No Hx Chronic Obstructive Pulmonary Disease (COPD): No Hx Cancer: No Hx Cardiac Disorders: No Hx Congestive Heart Failure: No Hx Hypertension: No Hx Hypercholesterolemia: No Hx Pacemaker: No HX Cerebrovascular Accident: No Hx Seizures: No Hx Dementia: No Hx Diabetes: No Hx Gastrointestinal Disorders: No Hx Liver Disease: No Hx Genitourinary Disorders: No Hx Sexually Transmitted Disorders: No Hx Renal Disease (ESRD): No Hx Thyroid Disease: No Hx Human Immunodeficiency Virus (HIV): No (06/01 last tested;NEGATIVE HX) Hx Hepatitis C: No Hx Depression: Yes Hx Suicide Attempt: No Hx Bipolar Disorder: No Hx Schizophrenia: No - Patient Surgical History Past Surgical History: Yes Hx Neurologic Surgery: No Hx Cataract Extraction: No Hx Cardiac Surgery: No Hx Lung Surgery: No Hx Breast Surgery: No Hx Breast Biopsy: No Hx Abdominal Surgery: No Hx Appendectomy: No Hx Cholecystectomy: No Hx Genitourinary Surgery: Yes (removal of ovarian cyst in ) Hx Section: No Hx Orthopedic Surgery: No Hx Hysterectomy: No Other Surgical History: tonsillectomy at age 8;D&C 03/2017 Anesthesia Reaction: No - PPD History Previous Implant?: Yes Documented Results: Negative w/o proof Implanted On Prior [facility] Admission?: No Date: 11/25/15 Results: 0 mm PPD to be Administered?: Yes - Reproductive History Patient is a Female of Child Bearing Age (11 -55 yrs old): Yes Last Menstrual Period: 05/12/17 Patient : No - Smoking Cessation Smoking history: Current every day smoker Have you smoked in the past 12 months: Yes Aproximately how many cigarettes per day: 20 Cigars Per Day: 0 Hx Chewing Tobacco Use: No Initiated information on smoking cessation: Yes 'Breaking Loose' booklet given: 07/17/17 - Substance & Tx. History Hx Alcohol Use: No Hx Substance Use: Yes Substance Use Type: Tranquilizers Hx Substance Use Treatment: Yes (08/2016: DETOX ) - Substances Abused Alprazolam (Xanax) Route: Oral Frequency: Daily Amount used: 10-14 mg Age of first use: 26 Date of Last Use: 07/17/17 PCP Route: Smoking Frequency: 1-3 times last 30 days Amount used: 1 joint Age of first use: 18 Date of Last Use: 06/26/17 Family Disease History - Family Disease History Family Disease History: Other: Father (alcohol,dsa), Mother (alcohol ) Admission Physical Exam BHS - Vital Signs Vital Signs: Vital Signs - 24 hr 07/17/17 13:49 Temperature 97.3 F L Pulse Rate 69 Respiratory 18 Rate Blood Pressure 120/81 - Physical General Appearance: Yes: Tremorous, Sweating, Anxious HEENTM: Yes: Hearing grossly Normal, Normocephalic, Normal Voice Respiratory: Yes: Chest Non-Tender, Lungs Clear, Normal Breath Sounds, No Respiratory Distress, No Accessory Muscle Use Neck: Yes: No masses,lesions,Nodules Breast: Yes: Breast Exam Deferred Cardiology: Yes: Regular Rhythm, Regular Rate Abdominal: Yes: Non Tender, Flat, Soft Genitourinary: Yes: Other (NO COMPLAINTS REPORTED) Back: Yes: Normal Inspection Musculoskeletal: Yes: full range of Motion, Gait Steady, Pelvis Stable Extremities: Yes: Normal Inspection, Normal Range of Motion, Tremors Neurological: Yes: Alert, Normal Response, Depressed Affect Integumentary: Yes: Normal Color, Dry, Warm Lymphatic: Yes: Within Normal Limits - Diagnostic (1) Nicotine dependence Current Visit: Yes Status: Chronic Qualifiers: Nicotine product type: cigarettes Substance use status: in withdrawal Qualified Code(s): F17.213 - Nicotine dependence, cigarettes, with withdrawal (2) PCP abuse Current Visit: Yes Status: Chronic (3) Sedative, hypnotic or anxiolytic dependence with withdrawal, uncomplicated Current Visit: Yes Status: Chronic (4) Methadone maintenance therapy patient Current Visit: Yes Status: Chronic Cleared for Admission [facility] - Detox or Rehab [facility] Level of Care: Medically Managed Detox Regimen/Protocol: Valium [facility] Breath Alcohol Content Breath Alcohol Content: 0 Urine Pregancy Test - Result Urine Test Results: Negative- NO Line Present Urine Drug Screen - Results Drug Screen Negative: No Urine Drug Screen Results: PCP-Phencyclidine, BZO-Benzodiazepines, MTD-Methadone , TCA-Tricyclic Antidepress
[2017-07-17] MEDS ORDERED: P-EPHED 60MG/TRIPROLIDI 2.5MG TABLET PO PRN (18:03)
[2017-07-17] MEDS ORDERED: ACETAMINOPHEN 325 MG TABLET (FP) PO PRN (18:03)
[2017-07-17] MEDS ORDERED: MAGNESIUM CITRATE 300 ML BOTTLE PO PRN (18:03)
[2017-07-17] MEDS ORDERED: MAGNESIUM HYDROX 2400MG/30ML ORAL SUSPENSION 30 ML CUP PO PRN (18:03)
[2017-07-17] MEDS ORDERED: MAG HYDROX/AL HYDROX/SIMETH 30 ML UNIT-DOSE CUP PO PRN (18:03)
[2017-07-17] MEDS ORDERED: guaiFENesin/D-METHORPHAN HB 10 ML UNIT-DOSE CUPS PO PRN (18:03)
[2017-07-17] MEDS ORDERED: LOPERAMIDE HCL 2 MG CAPSULE PO PRN (18:03)
[2017-07-17] MEDS ORDERED: hydrOXYzine PAMOATE 50 MG CAPSULE (FP) PO PRN (18:03)
[2017-07-17] MEDS ORDERED: IBUPROFEN 400 MG TABLET (FP) PO PRN (18:03)
[2017-07-17] MEDS ORDERED: MENTHOL/PHENOL 1 EACH UD MM PRN (18:03)
[2017-07-17] MEDS ORDERED: diazePAM 5 MG TABLET PO ONE (18:30)
[2017-07-17] MEDS: diazePAM 5 MG TABLET PO SCH (22:16)
[2017-07-17] MEDS: THIAMINE HCL 100 MG TABLET (FP) PO SCH (22:16)
[2017-07-18 04:08] LABS: URINE APPEARANCE CLOUDY; URINE BILIRUBIN NEGATIVE (NEGATIVE); URINE BLOOD NEGATIVE (NEGATIVE); URINE COLOR AMBER; URINE GLUCOSE (UA) NEGATIVE (NEGATIVE); URINE KETONE TRACE (NEGATIVE); URINE LEUK ESTERASE NEGATIVE (NEGATIVE); URINE NITRITE NEGATIVE (NEGATIVE)
[2017-07-18 04:12] LABS: URINE PROTEIN 1+ (NEGATIVE)
[2017-07-18 04:25] LABS: EPI CELLS MODERATE /HPF (FEW); URINE MUCUS RARE
[2017-07-18] MEDS: diazePAM 5 MG TABLET PO SCH ×3 (05:09→22:15)
[2017-07-18] MEDS: METHADONE HCL 40 MG DISPERSABLE TABLET PO SCH (08:02)
[2017-07-18] MEDS: diazePAM 5 MG TABLET PO PRN ×3 (08:53→21:03)
[2017-07-18] MEDS: NICOTINE 21 MG/24 HOURS TOPICAL PATCH TD SCH (09:50)
[2017-07-18] MEDS: PRENATAL VITAMINS W/ FOLIC ACID TABLET (FP) PO SCH (09:50)
[2017-07-18 10:08] LABS: HEMATOCRIT 39.9 % (32.4-45.2); HEMOGLOBIN 12.6 GM/dL (10.7-15.3); MCH 26.6 pg (25.7-33.7); MCHC 31.5 g/dl (32.0-36.0); MEAN CELL VOLUME 84.4 fl (80-96); MEAN PLT VOLUME 8.6 fl (7.5-11.1); PLATELET COUNT 259 K/MM3 (134-434); RBC 4.73 M/mm3 (3.60-5.2); RDW 17.2 % (11.6-15.6); WHITE BLOOD COUNT 11.2 K/mm3 (4.0-10.0)
[2017-07-18 10:18] LABS: CHLORIDE 105 mmol/L (98-107); POTASSIUM 4.2 mmol/L (3.5-5.1); SODIUM 138 mmol/L (136-145)
[2017-07-18 10:21] LABS: ALBUMIN 3.3 g/dl (3.4-5.0); ALK PHOS 91 U/L (45-117); ANION GAP 7 (8-16); BILIRUBIN,TOTAL 0.4 mg/dL (0.2-1.0); BLOOD UREA NITROGEN 9 mg/dL (7-18); CALCIUM 8.6 mg/dL (8.5-10.1); CO2 26 mmol/L (21-32); CREATININE 0.9 mg/dL (0.55-1.02); GLUCOSE,RANDOM 104 mg/dL (74-106); SGOT/AST 20 U/L (15-37); SGPT/ALT 21 U/L (12-78); TOT PROT 6.3 g/dl (6.4-8.2)
--- NOTE | 2017-07-18 11:27 | EKG ---
Test Reason : Blood Pressure : / mmHG Vent. Rate : 050 BPM Atrial Rate : 050 BPM P-R Int : 142 ms QRS Dur : 088 ms QT Int : 474 ms P-R-T Axes : 059 057 034 degrees QTc Int : 432 ms SINUS BRADYCARDIA WITH SINUS ARRHYTHMIA OTHERWISE NORMAL ECG WHEN COMPARED WITH ECG OF 09-SEP-2016 14:13, NO SIGNIFICANT CHANGE WAS FOUND BASELINE ARTIFACT Confirmed by HARVEY CORONA, LUIS ANTONIO ([id number]) on 07/18/2017 11:27:46 AM Referred By: Christian Barnes Confirmed By:LUIS ANTONIO GABRIEL MD
--- NOTE | 2017-07-18 16:52 | PN ---
BHS COWS - Scale Resting Pulse: 0= [place] 80 or Below Sweatin=Flushed/Facial Moisture Restless Observation: 1= Difficult to Sit Still Pupil Size: 0= Normal to Room Light Bone or Joint Aches: 1= Mild Discomfort Runny Nose/ Eye Tearin= Nasal Congestion GI Upset > 30mins: 1= Stomach Cramp Tremor Observation of Outstretched Hands: 2= Slight Tremor Visible Yawning Observation: 0= None Anxiety or Irritability: 2=Irritable/Anxious Goose Flesh Skin: 0=Smooth Skin COWS Score: 10 BHS Progress Note (SOAP) Subjective: withdrawal symptoms Objective: 07/18/17 16:50 Vital Signs Temperature 97.7 F 07/18/17 13:52 Pulse Rate 71 07/18/17 13:52 Respiratory Rate 18 07/18/17 13:52 Blood Pressure 106/71 07/18/17 13:52 O2 Sat by Pulse Oximetry (%) Laboratory Last Values WBC 11.2 K/mm3 (4.0-10.0) H 07/18/17 08:00 RBC 4.73 M/mm3 (3.60-5.2) 07/18/17 08:00 Hgb 12.6 GM/dL (10.7-15.3) D 07/18/17 08:00 Hct 39.9 % (32.4-45.2) 07/18/17 08:00 MCV 84.4 fl (80-96) 07/18/17 08:00 MCH 26.6 pg (25.7-33.7) 07/18/17 08:00 MCHC 31.5 g/dl (32.0-36.0) L 07/18/17 08:00 RDW 17.2 % (11.6-15.6) H D 07/18/17 08:00 Plt Count 259 K/MM3 (134-434) 07/18/17 08:00 MPV 8.6 fl (7.5-11.1) 07/18/17 08:00 Sodium 138 mmol/L (136-145) 07/18/17 08:00 Potassium 4.2 mmol/L (3.5-5.1) 07/18/17 08:00 Chloride 105 mmol/L (98-107) 07/18/17 08:00 Carbon Dioxide 26 mmol/L (21-32) 07/18/17 08:00 Anion Gap 7 (8-16) L 07/18/17 08:00 BUN 9 mg/dL (7-18) D 07/18/17 08:00 Creatinine 0.9 mg/dL (0.55-1.02) 07/18/17 08:00 Creat Clearance w eGFR > 60 (>60) 07/18/17 08:00 Random Glucose 104 mg/dL (74-106) 07/18/17 08:00 Calcium 8.6 mg/dL (8.5-10.1) 07/18/17 08:00 Total Bilirubin 0.4 mg/dL (0.2-1.0) D 07/18/17 08:00 AST 20 U/L (15-37) D 07/18/17 08:00 ALT 21 U/L (12-78) D 07/18/17 08:00 Alkaline Phosphatase 91 U/L (45-117) 07/18/17 08:00 Total Protein 6.3 g/dl (6.4-8.2) L 07/18/17 08:00 Albumin 3.3 g/dl (3.4-5.0) L 07/18/17 08:00 Urine Color [place] 07/17/17 23:32 Urine Appearance Cloudy 07/17/17 23:32 Urine pH 5.0 (5.0-8.0) 07/17/17 23:32 Ur Specific [place] 1.027 (1.001-1.035) 07/17/17 23:32 Urine Protein 1+ (NEGATIVE) H 07/17/17 23:32 Urine Glucose (UA) Negative (NEGATIVE) 07/17/17 23:32 Urine Ketones Trace (NEGATIVE) H 07/17/17 23:32 Urine Blood Negative (NEGATIVE) 07/17/17 23:32 Urine Nitrite Negative (NEGATIVE) 07/17/17 23: Urine Bilirubin Negative (NEGATIVE) 07/17/17 23: Urine Urobilinogen 2.0 mg/dL (0.2-1.0) H 07/17/17 23:32 Ur Leukocyte Esterase Negative (NEGATIVE) 07/17/17 23:32 Urine WBC (Auto) 3 /hpf (3-5) 07/17/17 23:32 Urine RBC (Auto) 2 /hpf (0-3) 07/17/17 23:32 Ur Epithelial Cells Moderate /HPF (FEW) 07/17/17 23:32 Urine Mucus Rare 07/17/17 23:32 RPR Titer Nonreactive (NONREACTIVE) 07/18/17 08:00 labs noted Assessment: 07/18/17 16:51 withdrawal sx sleeping, arousable to verbal stimuli Plan: continue detox
--- NOTE | 2017-07-18 16:59 | CONSULT ---
[facility] Psychiatric Consult - Data Date of interview: 07/18/17 Admission source: [facility] Identifying data: Readmission to [facility] for this 32 y/o female seeking detox treatment on for xanax and phencyclidine dependence.Patient is single,a mother of one,domiciled,unemployed and supported on food stamps. Substance Abuse History: Patient admits to current use of PCP and xanax as detailed in the current [facility] report : Smoking history: Current every day smoker. Have you smoked in the past 12 months: Yes. Aproximately how many cigarettes per day: 20. Cigars Per Day: 0. Hx Chewing Tobacco Use: No. Initiated information on smoking cessation: Yes. 'Breaking Loose' booklet given : 07/17/17. - Substance & Tx. History. Hx Alcohol Use: No. Hx Substance Use: Yes. Substance Use Type: Tranquilizers. Hx Substance Use Treatment: Yes (2016: DETOX ). - Substances Abused. Alprazolam (Xanax). Route: Oral. Frequency: Daily. Amount used: 10-14 mg. Age of first use: 26. Date of Last Use: 07/17/17. PCP. Route: Smoking. Frequency: 1-3 times last 30 days. Amount used: 1 joint. Age of first use: 18. Date of Last Use: 06/26/17 Medical History: History of pelvic surgery in 2002 + 2006 (excision of ovarian cysts),recent D+C (termination of in March 2017) and past history of tonsillectomy (childhood). Psychiatric History: No reported history of psychiatric hospitalizations.Patient reports current affiliation with [facility] program ( daily methadone dose = 120 mg).Additional diagnoses : MDD and Anxiety Disorder ( self-report).No medications (discharged from [facility] in the past on seroquel 50 mg/hs to address insomnia).Ms Duckworth denies history of suicide attempts. Physical/Sexual Abuse/Trauma History: Patient denies. Additional Comment: Urine Drug Screen Results: PCP-Phencyclidine, BZO- Benzodiazepines, MTD-Methadone, TCA-Tricyclic Antidepressant.Noted. Mental Status Exam - Mental Status Exam Alert and Oriented to: Time, Place, Person Cognitive Function: Good Patient Appearance: Well Groomed Mood: Nervous, Anxious, Hopeful Affect: Mood Congruent Patient Behavior: Fatigued, Appropriate, Cooperative Speech Pattern: Clear, Appropriate Voice Loudness: Normal Thought Process: Goal Oriented Thought Disorder: Not Present Hallucinations: Denies Suicidal Ideation: Denies Homicidal Ideation: Denies Insight/Judgement: Poor Sleep: Poorly, Difficulty falling asleep (wants remeron) Appetite: Good Muscle strength/Tone: Normal Gait/Station: Normal Psychiatric Findings - Problem List ([place] 1, 2,3) (1) Opioid dependence on agonist therapy Current Visit: Yes Status: Acute (2) Sedative, hypnotic or anxiolytic dependence with withdrawal, uncomplicated Current Visit: Yes Status: Acute (3) Phencyclidine dependence Current Visit: Yes Status: Acute (4) Drug-induced mood disorder Current Visit: Yes Status: Acute (5) Nicotine dependence Current Visit: Yes Status: Acute Qualifiers: Nicotine product type: cigarettes Substance use status: in withdrawal Qualified Code(s): F17.213 - Nicotine dependence, cigarettes, with withdrawal (6) Insomnia Current Visit: Yes Status: Acute - Initial Treatment Plan Initial Treatment Plan: Psychoeducation.Sleep hygiene.Detoxification.Support.Medication ; remeron 7.5 mg po hs (patient's specific request).Side effects/benefits discussed with patient.Consent (verbal) received from patient.Observation.
[2017-07-18] MEDS: NICOTINE POLACRILEX 2 MG GUM BUC PRN (17:21)
[2017-07-18] MEDS: THIAMINE HCL 100 MG TABLET (FP) PO SCH (22:14)
[2017-07-18] MEDS: MIRTAZAPINE 15 MG TABLET (FP) PO SCH (22:15)
[2017-07-19] MEDS: METHADONE HCL 40 MG DISPERSABLE TABLET PO SCH (05:14)
[2017-07-19] MEDS: diazePAM 5 MG TABLET PO PRN ×3 (06:57→18:42)
[2017-07-19] MEDS: PRENATAL VITAMINS W/ FOLIC ACID TABLET (FP) PO SCH (10:18)
[2017-07-19] MEDS: diazePAM 5 MG TABLET PO SCH ×2 (10:18→22:22)
[2017-07-19] MEDS: NICOTINE 21 MG/24 HOURS TOPICAL PATCH TD SCH (10:18)
--- NOTE | 2017-07-19 15:47 | PN ---
[facility] CIWA - CIWA Score Nausea/Vomitin-Int. Nausea w/Dry Heave Muscle Tremors: 3 Anxiety: 3 Agitation: 3 Paroxysmal Sweats: 2 Orientation: 0-Oriented Tacttile Disturbances: 0-None Auditory Disturbances: 0-None Visual Disturbances: 0-None Headache: 0-None Present CIWA-Ar Total Score: 15 S Progress Note (SOAP) Subjective: Hiccups, nausea, tremors, abd cramp Objective: 07/19/17 15:45 Vital Signs Temperature 97.9 F 07/19/17 14:25 Pulse Rate 77 07/19/17 14:25 Respiratory Rate 18 07/19/17 14:25 Blood Pressure 111/66 07/19/17 14:25 O2 Sat by Pulse Oximetry (%) Laboratory Last Values WBC 11.2 K/mm3 (4.0-10.0) H 07/18/17 08:00 RBC 4.73 M/mm3 (3.60-5.2) 07/18/17 08:00 Hgb 12.6 GM/dL (10.7-15.3) D 07/18/17 08:00 Hct 39.9 % (32.4-45.2) 07/18/17 08:00 MCV 84.4 fl (80-96) 07/18/17 08:00 MCH 26.6 pg (25.7-33.7) 07/18/17 08:00 MCHC 31.5 g/dl (32.0-36.0) L 07/18/17 08:00 RDW 17.2 % (11.6-15.6) H D 07/18/17 08:00 Plt Count 259 K/MM3 (134-434) 07/18/17 08:00 MPV 8.6 fl (7.5-11.1) 07/18/17 08:00 Sodium 138 mmol/L (136-145) 07/18/17 08:00 Potassium 4.2 mmol/L (3.5-5.1) 07/18/17 08:00 Chloride 105 mmol/L (98-107) 07/18/17 08:00 Carbon Dioxide 26 mmol/L (21-32) 07/18/17 08:00 Anion Gap 7 (8-16) L 07/18/17 08:00 BUN 9 mg/dL (7-18) D 07/18/17 08:00 Creatinine 0.9 mg/dL (0.55-1.02) 07/18/17 08:00 Creat Clearance w eGFR > 60 (>60) 07/18/17 08:00 Random Glucose 104 mg/dL (74-106) 07/18/17 08:00 Calcium 8.6 mg/dL (8.5-10.1) 07/18/17 08:00 Total Bilirubin 0.4 mg/dL (0.2-1.0) D 07/18/17 08:00 AST 20 U/L (15-37) D 07/18/17 08:00 ALT 21 U/L (12-78) D 07/18/17 08:00 Alkaline Phosphatase 91 U/L (45-117) 07/18/17 08:00 Total Protein 6.3 g/dl (6.4-8.2) L 07/18/17 08:00 Albumin 3.3 g/dl (3.4-5.0) L 07/18/17 08:00 Urine Color [place] 07/17/17 23:32 Urine Appearance Cloudy 07/17/17 23:32 Urine pH 5.0 (5.0-8.0) 07/17/17 23:32 Ur Specific [place] 1.027 (1.001-1.035) 07/17/17 23:32 Urine Protein 1+ (NEGATIVE) H 07/17/17 23:32 Urine Glucose (UA) Negative (NEGATIVE) 07/17/17 23:32 Urine Ketones Trace (NEGATIVE) H 07/17/17 23:32 Urine Blood Negative (NEGATIVE) 07/17/17 23:32 Urine Nitrite Negative (NEGATIVE) 07/17/17 23:32 Urine Bilirubin Negative (NEGATIVE) 07/17/17 23:32 Urine Urobilinogen 2.0 mg/dL (0.2-1.0) H 07/17/17 23:32 Ur Leukocyte Esterase Negative (NEGATIVE) 07/17/17 23:32 Urine WBC (Auto) 3 /hpf (3-5) 07/17/17 23:32 Urine RBC (Auto) 2 /hpf (0-3) 07/17/17 23:32 Ur Epithelial Cells Moderate /HPF (FEW) 07/17/17 23:32 Urine Mucus Rare 07/17/17 23:32 RPR Titer Nonreactive (NONREACTIVE) 07/18/17 08:00 labs noted Assessment: 07/19/17 15:46 withdrawal sx No acute distress noted Plan: continue detox
[2017-07-19] MEDS: MIRTAZAPINE 15 MG TABLET (FP) PO SCH (22:22)
[2017-07-19] MEDS: THIAMINE HCL 100 MG TABLET (FP) PO SCH (22:22)
[2017-07-20] MEDS: diazePAM 5 MG TABLET PO PRN ×4 (01:06→16:53)
[2017-07-20] MEDS: METHADONE HCL 40 MG DISPERSABLE TABLET PO SCH (05:13)
[2017-07-20] MEDS: NICOTINE 21 MG/24 HOURS TOPICAL PATCH TD SCH (10:24)
[2017-07-20] MEDS: diazePAM 5 MG TABLET PO SCH ×2 (10:24→22:11)
[2017-07-20] MEDS: PRENATAL VITAMINS W/ FOLIC ACID TABLET (FP) PO SCH (10:24)
[2017-07-20] MEDS: NICOTINE POLACRILEX 2 MG GUM BUC PRN ×3 (10:26→22:12)
--- NOTE | 2017-07-20 12:13 | PN ---
S Progress Note (SOAP) Subjective: ALERT,IRRITABLE,ANXIOUS,INTERRUPTED SLEEP Objective: 07/20/17 12:12 Vital Signs Temperature 98.2 F 07/20/17 10:00 Pulse Rate 100 H 07/20/17 10:00 Respiratory Rate 20 07/20/17 10:00 Blood Pressure 110/77 07/20/17 10:00 O2 Sat by Pulse Oximetry (%) Assessment: 07/20/17 12:12 WITHDRAWAL SYMPTOM Plan: CONTINUE DETOX,DISCHARGE IN AM
[2017-07-20] MEDS: THIAMINE HCL 100 MG TABLET (FP) PO SCH (22:11)
[2017-07-20] MEDS: MIRTAZAPINE 15 MG TABLET (FP) PO SCH (22:12)
[2017-07-21] MEDS: METHADONE HCL 40 MG DISPERSABLE TABLET PO SCH (05:23)
[2017-07-21 05:58] VITALS: BP 117/66; PULSE 71; TEMP 97.7
--- NOTE | 2017-07-21 09:16 | DS ---
[facility] Detox Discharge Summary Admission Date: 07/17/17 Discharge Date: 07/21/17 - History Present History: Cannabis Dependence, Opioid Dependence, Sedative Dependence, Pcp Dependence, MMTP - Physical Exam Results Vital Signs: Vital Signs Temperature 97.7 F 07/21/17 05:57 Pulse Rate 71 07/21/17 05:57 Respiratory Rate 18 07/21/17 05:57 Blood Pressure 117/66 07/21/17 05:57 O2 Sat by Pulse Oximetry (%) - Treatment Hospital Course: Detox Protocol Followed, Detoxed Safely, Responded well, Discharged Condition Good, Rehab Referral Accepted - Medication Discharge Medications: Ambulatory Orders Mirtazapine [Remeron -] 15 mg PO HS #30 tablet 07/18/17 - Diagnosis (1) Opioid dependence Current Visit: Yes Status: Active (2) Drug-induced mood disorder Current Visit: Yes Status: Acute (3) Insomnia Current Visit: Yes Status: Acute (4) Nicotine dependence Current Visit: Yes Status: Acute Qualifiers: Nicotine product type: cigarettes Substance use status: in withdrawal Qualified Code(s): F17.213 - Nicotine dependence, cigarettes, with withdrawal (5) Opioid dependence on agonist therapy Current Visit: Yes Status: Acute (6) Phencyclidine dependence Current Visit: Yes Status: Acute (7) Sedative, hypnotic or anxiolytic dependence with withdrawal, uncomplicated Current Visit: Yes Status: Chronic (8) Methadone maintenance therapy patient Current Visit: Yes Status: Chronic (9) PCP abuse Current Visit: Yes Status: Chronic (10) Alcohol dependence Current Visit: No Status: Acute Qualifiers: Substance use status: in withdrawal Complication of substance-induced condition: uncomplicated Qualified Code(s): F10.230 - Alcohol dependence with withdrawal, uncomplicated (11) Alcohol-induced mood disorder Current Visit: No Status: Acute (12) Alcohol-induced sleep disorder Current Visit: No Status: Acute (13) Cannabis dependence, uncomplicated Current Visit: No Status: Acute (14) Insomnia secondary to depression with anxiety Current Visit: No Status: Acute (15) Syncope Current Visit: No Status: Acute (16) Weight decreased Current Visit: No Status: Acute (17) Seizure Current Visit: No Status: Suspected - AMA Did Patient Leave Against Medical Advice: No
[2017-07-21] MEDS ORDERED: diazePAM 5 MG TABLET PO SCH (10:00)
== END 2017-07-21 09:00 | disposition home or self-care (01) | DRG 773 ==
LOC: YASAS 12:12 → Y6N 17:23
PROVIDERS: ADMIT Internal Medicine; ATTEND Internal Medicine
PROC: HZ2ZZZZ Detoxification Services for Substance Abuse Treatment (ICD-10-PCS; principal; 2017-07-17)
DX: F13.230 Sedative, hypnotic or anxiolytic dependence with withdrawal, uncomplicated (principal); F11.20 Opioid dependence, uncomplicated; F10.24 Alcohol dependence with alcohol-induced mood disorder; F10.282 Alcohol dependence with alcohol-induced sleep disorder; F16.20 Hallucinogen dependence, uncomplicated; F12.20 Cannabis dependence, uncomplicated; F19.24 Other psychoactive substance dependence with psychoactive substance-induced mood disorder; F51.05 Insomnia due to other mental disorder; Z86.79 Personal history of other diseases of the circulatory system; Z87.898 Personal history of other specified conditions
CPT/HCPCS: 36415; 80053; 81003; 81015; 85027; 86593; 93005; 93010

== ENCOUNTER 2018-01-18 11:02 | Inpatient (IN) | payer OTHER ==
[2018-01-18 11:39] VITALS: BMI 31.8
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
[2018-01-18] MEDS ORDERED: P-EPHED 60MG/TRIPROLIDI 2.5MG TABLET PO PRN (15:09)
[2018-01-18] MEDS ORDERED: hydrOXYzine PAMOATE 50 MG CAPSULE (FP) PO PRN (15:09)
[2018-01-18] MEDS ORDERED: NICOTINE POLACRILEX 4 MG GUM BUC PRN (15:09)
[2018-01-18] MEDS ORDERED: guaiFENesin/D-METHORPHAN HB 10 ML UNIT-DOSE CUPS PO PRN (15:09)
[2018-01-18] MEDS ORDERED: LOPERAMIDE HCL 2 MG CAPSULE PO PRN (15:09)
[2018-01-18] MEDS ORDERED: ACETAMINOPHEN 325 MG TABLET (FP) PO PRN (15:09)
[2018-01-18] MEDS ORDERED: MAGNESIUM CITRATE 300 ML BOTTLE PO PRN (15:09)
[2018-01-18] MEDS ORDERED: MAGNESIUM HYDROX 2400MG/30ML ORAL SUSPENSION 30 ML CUP PO PRN (15:09)
[2018-01-18] MEDS ORDERED: MAG HYDROX/AL HYDROX/SIMETH 30 ML UNIT-DOSE CUP PO PRN (15:09)
[2018-01-18] MEDS ORDERED: diazePAM 5 MG TABLET PO ONE (15:45)
[2018-01-18] MEDS: NICOTINE 21 MG/24 HOURS TOPICAL PATCH TD SCH (18:47)
[2018-01-18] MEDS: IBUPROFEN 400 MG TABLET (FP) PO PRN (18:49)
[2018-01-18] MEDS ORDERED: MELATONIN 5 MG TABLETS PO PRN (22:00)
[2018-01-18] MEDS: diazePAM 5 MG TABLET PO SCH (22:14)
[2018-01-18] MEDS: THIAMINE HCL 100 MG TABLET (FP) PO SCH (22:14)
[2018-01-18 23:19] LABS: URINE APPEARANCE CLOUDY; URINE BILIRUBIN NEGATIVE (<2.0 mg/dL); URINE COLOR AMBER; URINE GLUCOSE (UA) NEGATIVE (NEGATIVE); URINE KETONE NEGATIVE (NEGATIVE); URINE LEUK ESTERASE TRACE (NEGATIVE); URINE NITRITE NEGATIVE (NEGATIVE)
[2018-01-18 23:26] LABS: URINE PROTEIN 1+ (NEGATIVE)
[2018-01-18 23:31] LABS: EPI CELLS MANY /HPF (FEW); URINE BACTERIA MODERATE /hpf (NONE SEEN); URINE HYALINE CAST 15 /lpf; URINE MUCUS MODERATE
[2018-01-19] MEDS: diazePAM 5 MG TABLET PO PRN ×3 (01:36→14:56)
[2018-01-19] MEDS ORDERED: METHADONE HCL 10 MG TABLET ONE (04:50)
[2018-01-19] MEDS ORDERED: METHADONE HCL 40 MG DISPERSABLE TABLET ONE (04:50)
[2018-01-19] MEDS: METHADONE 80 MG, METHADONE 20 MG PO SCH (05:27)
[2018-01-19] MEDS: diazePAM 5 MG TABLET PO SCH ×3 (05:27→22:26)
[2018-01-19] MEDS: IBUPROFEN 400 MG TABLET (FP) PO PRN ×2 (05:56→18:02)
[2018-01-19] MEDS ORDERED: METHADONE HCL 10 MG TABLET PO SCH (06:00)
[2018-01-19] MEDS: AMOX TR/POT CLAV 875MG/125MG TABLETS (FP) PO SCH ×2 (07:53→18:02)
[2018-01-19] MEDS: PRENATAL VITAMINS W/ FOLIC ACID TABLET (FP) PO SCH (10:10)
[2018-01-19] MEDS: BACLOFEN 10 MG TABLET (FP) PO PRN ×2 (10:10→18:03)
[2018-01-19] MEDS: NICOTINE 21 MG/24 HOURS TOPICAL PATCH TD SCH (10:10)
--- NOTE | 2018-01-19 10:15 | PN ---
S CIWA - CIWA Score Nausea/Vomitin-No Nausea/No Vomiting Muscle Tremors: 3 Anxiety: 4-Mod. Anxious/Guarded Agitation: 4-Moderately Restless Paroxysmal Sweats: 1-Minimal Palms Moist Orientation: 0-Oriented Tacttile Disturbances: 2-Mild Itch/Numbness/Burn Auditory Disturbances: 0-None Visual Disturbances: 0-None Headache: 0-None Present CIWA-Ar Total Score: 14 BHS Progress Note (SOAP) Subjective: anxiety sweat restlessness irritable muscle cramp Objective: 01/19/18 10:14 Vital Signs Temperature 97.9 F 01/19/18 07:31 Pulse Rate 58 L 01/19/18 07:31 Respiratory Rate 18 01/19/18 07:31 Blood Pressure 105/57 01/19/18 07:31 O2 Sat by Pulse Oximetry (%) Laboratory Last Values Urine Color [place] 01/18/18 Unknown Urine Appearance Cloudy 01/18/18 Unknown Urine pH 5.0 (5.0-8.0) 01/18/18 Unknown Ur Specific [place] 1.027 (1.001-1.035) 01/18/18 Unknown Urine Protein 1+ (NEGATIVE) H 01/18/18 Unknown Urine Glucose (UA) Negative (NEGATIVE) 01/18/18 Unknown Urine Ketones Negative (NEGATIVE) 01/18/18 Unknown Urine Blood 3+ (NEGATIVE) H 01/18/18 Unknown Urine Nitrite Negative (NEGATIVE) 01/18/18 Unknown Urine Bilirubin Negative (<2.0 mg/dL) 01/18/18 Unknown Urine Urobilinogen 2.0 mg/dL (0.2-1.0) H 01/18/18 Unknown Ur Leukocyte Esterase Trace (NEGATIVE) 01/18/18 Unknown Urine WBC (Auto) 18 /hpf (3-5) 01/18/18 Unknown Urine RBC (Auto) 638 /hpf (0-3) 01/18/18 Unknown Ur Epithelial Cells Many /HPF (FEW) 01/18/18 Unknown Urine Bacteria Moderate /hpf (NONE SEEN) 01/18/18 Unknown Hyaline Casts 15 /lpf 01/18/18 Unknown Urine Mucus Moderate 01/18/18 Unknown lab noted Assessment: 01/19/18 10:15 withdrawal sx Plan: continue detox baclofen prn 10 mg tid
[2018-01-19 10:29] LABS: HEMOGLOBIN 12.5 GM/dL (10.7-15.3); MCH 28.6 pg (25.7-33.7); MCHC 32.8 g/dl (32.0-36.0); MEAN PLT VOLUME 9.3 fl (7.5-11.1); PLATELET COUNT 340 K/MM3 (134-434); RBC 4.37 M/mm3 (3.60-5.2); RDW 14.5 % (11.6-15.6)
[2018-01-19 10:33] LABS: ALBUMIN 3.9 g/dl (3.4-5.0); ANION GAP 7 (8-16); BLOOD UREA NITROGEN 12 mg/dL (7-18); CALCIUM 8.9 mg/dL (8.5-10.1); CHLORIDE 107 mmol/L (98-107); CO2 28 mmol/L (21-32); CREATININE 1.2 mg/dL (0.55-1.02); GLUCOSE,RANDOM 84 mg/dL (74-106); POTASSIUM 4.2 mmol/L (3.5-5.1); SGOT/AST 15 U/L (15-37); SGPT/ALT 21 U/L (12-78); SODIUM 142 mmol/L (136-145)
[2018-01-19 10:34] LABS: ALK PHOS 101 U/L (45-117); BILIRUBIN,TOTAL 0.3 mg/dL (0.2-1.0); TOT PROT 7.6 g/dl (6.4-8.2)
--- NOTE | 2018-01-19 13:09 | EKG ---
Test Reason : Blood Pressure : / mmHG Vent. Rate : 056 BPM Atrial Rate : 056 BPM P-R Int : 142 ms QRS Dur : 082 ms QT Int : 426 ms P-R-T Axes : 051 048 028 degrees QTc Int : 411 ms SINUS BRADYCARDIA NONSPECIFIC T WAVE ABNORMALITY ABNORMAL ECG WHEN COMPARED WITH ECG OF 18-JAN-2018 18:23, NO SIGNIFICANT CHANGE WAS FOUND Confirmed by MD JORDI, SHERIDAN ([id number]) on 01/19/2018 1:09:07 PM Referred By: Confirmed By:SHERIDAN BACON MD
--- NOTE | 2018-01-19 13:13 | EKG ---
Test Reason : Blood Pressure : / mmHG Vent. Rate : 053 BPM Atrial Rate : 053 BPM P-R Int : 146 ms QRS Dur : 088 ms QT Int : 422 ms P-R-T Axes : 067 043 024 degrees QTc Int : 395 ms SINUS BRADYCARDIA NONSPECIFIC T WAVE ABNORMALITY ABNORMAL ECG Confirmed by MD JORDI, SHERIDAN ([id number]) on 01/19/2018 1:13:29 PM Referred By: Confirmed By:SHERIDAN BACON MD
--- NOTE | 2018-01-19 14:04 | CONSULT ---
[facility] Psychiatric Consult - Data Date of interview: 01/19/18 Admission source: [facility] Identifying data: Patient is a 33 year old single female, mother of a twelve year old, unemployed, residing with boyfriend/mother. This is one of multiple admissions for patient. Pt. admitted to for benzodiazepine dependence. Substance Abuse History: Smoking Cessation. Smoking history: Current every day smoker. Have you smoked in the past 12 months: Yes. Aproximately how many cigarettes per day: 20. Cigars Per Day: 0. Hx Chewing Tobacco Use: No. Initiated information on smoking cessation: Yes. 'Breaking Loose' booklet given : 01/18/18. - Substance & Tx. History. Hx Alcohol Use: No (DENIES). Hx Substance Use: Yes (XANAX). Substance Use Type: Tranquilizers. Hx Substance Use Treatment: Yes. - Substances Abused. Alprazolam (Xanax). Route: Oral. Frequency: Daily. Amount used: 6-8 mg daily. Age of first use: 26. Date of Last Use: 01/18/18 Medical History: Anemia, Seizures (drug related seizures October 2017) Psychiatric History: Patient denies h/o psychiatric hospitalizations. OPD is currently provided at the [facility]. Reports seeing the psychiatrist once and was not prescribed any medications. States her PCP used to prescribe her xanax in approxiately 1.5-2 years ago and has a h/o accepting prozac in the past. Pt denies h/o suicide attempt. Physical/Sexual Abuse/Trauma History: Denies. Mental Status Exam - Mental Status Exam Alert and Oriented to: Time, Place, Person Cognitive Function: Good Patient Appearance: Well Groomed Mood: Hopeful, Euthymic Affect: Mood Congruent Patient Behavior: Cooperative Speech Pattern: Appropriate Voice Loudness: Normal Thought Process: Goal Oriented Thought Disorder: Not Present Hallucinations: Denies Suicidal Ideation: Denies Homicidal Ideation: Denies Insight/Judgement: Poor Sleep: Poorly Appetite: Fair Muscle strength/Tone: Normal Gait/Station: Normal Psychiatric Findings - Problem List ([place] 1, 2,3) (1) Gingival abscess Current Visit: Yes Status: Acute (2) Nicotine dependence Current Visit: Yes Status: Acute Qualifiers: Nicotine product type: cigarettes Substance use status: in withdrawal Qualified Code(s): F17.213 - Nicotine dependence, cigarettes, with withdrawal (3) Sedative, hypnotic or anxiolytic dependence with withdrawal, uncomplicated Current Visit: Yes Status: Acute (4) Methadone maintenance therapy patient Current Visit: Yes Status: Chronic (5) Obesity (BMI 30.0-34.9) Current Visit: Yes Status: Chronic (6) Seizure Current Visit: Yes Status: Suspected Qualifiers: Convulsion type: unspecified Qualified Code(s): R56.9 - Unspecified convulsions Comment: NOT SURE, BUT STATES DUE TO WITHDRAWAL SX (7) Cannabis dependence, uncomplicated Current Visit: No Status: Acute (8) Substance induced mood disorder Current Visit: Yes Status: Acute (9) Insomnia Current Visit: Yes Status: Acute - Initial Treatment Plan Initial Treatment Plan: Psychoeducation provided. Detoxification in progress. Ambien 5mg qhs prn ordered. Benefits and side effects discussed. Pt. made aware of the risk of parasomnia.
[2018-01-19] MEDS ORDERED: ZOLPIDEM TARTRATE 5 MG TABLET PO PRN (22:00)
[2018-01-19] MEDS: THIAMINE HCL 100 MG TABLET (FP) PO SCH (22:26)
[2018-01-20] MEDS: IBUPROFEN 400 MG TABLET (FP) PO PRN ×2 (00:35→06:11)
[2018-01-20] MEDS: diazePAM 5 MG TABLET PO PRN ×4 (00:37→18:33)
[2018-01-20] MEDS ORDERED: METHADONE HCL 40 MG DISPERSABLE TABLET ONE (04:27)
[2018-01-20] MEDS ORDERED: METHADONE HCL 10 MG TABLET ONE (04:27)
[2018-01-20] MEDS: METHADONE 80 MG, METHADONE 20 MG PO SCH (05:53)
[2018-01-20] MEDS: LIDOCAINE VISCOUS 2% ORAL/TOP 20 ML UNIT-DOSE CUP MM PRN ×2 (06:12→10:19)
[2018-01-20] MEDS: AMOX TR/POT CLAV 875MG/125MG TABLETS (FP) PO SCH ×2 (07:40→17:19)
[2018-01-20] MEDS: BACLOFEN 10 MG TABLET (FP) PO PRN ×2 (10:18→22:21)
[2018-01-20] MEDS: diazePAM 5 MG TABLET PO SCH ×2 (10:18→22:21)
[2018-01-20] MEDS: PRENATAL VITAMINS W/ FOLIC ACID TABLET (FP) PO SCH (10:18)
[2018-01-20] MEDS: NICOTINE 21 MG/24 HOURS TOPICAL PATCH TD SCH (10:21)
[2018-01-20] MEDS: cloNIDine HCL 0.1 MG TABLET PO PRN ×2 (11:00→22:20)
[2018-01-20] MEDS ORDERED: cloNIDine HCL 0.1 MG TABLET PO SCH (11:00)
[2018-01-20] MEDS: LIDOCAINE 5% TOPICAL PATCH TP SCH (11:00)
--- NOTE | 2018-01-20 13:06 | PN ---
S CIWA - CIWA Score Nausea/Vomitin-No Nausea/No Vomiting Muscle Tremors: 3 Anxiety: 4-Mod. Anxious/Guarded Agitation: 3 Paroxysmal Sweats: 1-Minimal Palms Moist Orientation: 0-Oriented Tacttile Disturbances: 1-Very Mild Itch/Numbness Auditory Disturbances: 0-None Visual Disturbances: 0-None Headache: 0-None Present CIWA-Ar Total Score: 12 BHS Progress Note (SOAP) Subjective: anxiety muscle cramping restlessness irritable sweating tremor Objective: 01/20/18 13:05 Vital Signs Temperature 97.7 F 01/20/18 09:53 Pulse Rate 62 01/20/18 09:53 Respiratory Rate 18 01/20/18 09:53 Blood Pressure 116/72 01/20/18 09:53 O2 Sat by Pulse Oximetry (%) Laboratory Last Values WBC 12.0 K/mm3 (4.0-10.0) H 01/19/18 06:00 RBC 4.37 M/mm3 (3.60-5.2) 01/19/18 06:00 Hgb 12.5 GM/dL (10.7-15.3) 01/19/18 06:00 Hct 38.0 % (32.4-45.2) 01/19/18 06:00 MCV 87.0 fl (80-96) 01/19/18 06:00 MCH 28.6 pg (25.7-33.7) 01/19/18 06:00 MCHC 32.8 g/dl (32.0-36.0) 01/19/18 06:00 RDW 14.5 % (11.6-15.6) 01/19/18 06:00 Plt Count 340 K/MM3 (134-434) 01/19/18 06:00 MPV 9.3 fl (7.5-11.1) D 01/19/18 06:00 Sodium 142 mmol/L (136-145) 01/19/18 06:00 Potassium 4.2 mmol/L (3.5-5.1) 01/19/18 06:00 Chloride 107 mmol/L (98-107) 01/19/18 06:00 Carbon Dioxide 28 mmol/L (21-32) 01/19/18 06:00 Anion Gap 7 (8-16) L 01/19/18 06:00 BUN 12 mg/dL (7-18) 01/19/18 06:00 Creatinine 1.2 mg/dL (0.55-1.02) H 01/19/18 06:00 Creat Clearance w eGFR 52.06 (>60) 01/19/18 06:00 Random Glucose 84 mg/dL (74-106) 01/19/18 06:00 Calcium 8.9 mg/dL (8.5-10.1) 01/19/18 06:00 Total Bilirubin 0.3 mg/dL (0.2-1.0) 01/19/18 06:00 AST 15 U/L (15-37) 01/19/18 06:00 ALT 21 U/L (12-78) 01/19/18 06:00 Alkaline Phosphatase 101 U/L (45-117) 01/19/18 06:00 Total Protein 7.6 g/dl (6.4-8.2) 01/19/18 06:00 Albumin 3.9 g/dl (3.4-5.0) 01/19/18 06:00 Urine Color [place] 01/18/18 Unknown Urine Appearance Cloudy 01/18/18 Unknown Urine pH 5.0 (5.0-8.0) 01/18/18 Unknown Ur Specific [place] 1.027 (1.001-1.035) 01/18/18 Unknown Urine Protein 1+ (NEGATIVE) H 01/18/18 Unknown Urine Glucose (UA) Negative (NEGATIVE) 01/18/18 Unknown Urine Ketones Negative (NEGATIVE) 01/18/18 Unknown Urine Blood 3+ (NEGATIVE) H 01/18/18 Unknown Urine Nitrite Negative (NEGATIVE) 01/18/18 Unknown Urine Bilirubin Negative (<2.0 mg/dL) 01/18/18 Unknown Urine Urobilinogen 2.0 mg/dL (0.2-1.0) H 01/18/18 Unknown Ur Leukocyte Esterase Trace (NEGATIVE) 01/18/18 Unknown Urine WBC (Auto) 18 /hpf (3-5) 01/18/18 Unknown Urine RBC (Auto) 638 /hpf (0-3) 01/18/18 Unknown Ur Epithelial Cells Many /HPF (FEW) 01/18/18 Unknown Urine Bacteria Moderate /hpf (NONE SEEN) 01/18/18 Unknown Hyaline Casts 15 /lpf 01/18/18 Unknown Urine Mucus Moderate 01/18/18 Unknown RPR Titer Nonreactive (NONREACTIVE) 01/19/18 06:00 01/20/18 13:06 lab noted continue augmentin Assessment: 01/20/18 13:07 withdrawal sx Plan: continue detox
--- NOTE | 2018-01-20 14:41 | PN ---
S Progress Note Note: Psychiatric nurse practitioner note: Pt. accepted ambien 5mg last night for insomnia but continues to reports poor sleep. Ambien increased to 10mg. Verbal consent given.
[2018-01-20] MEDS: THIAMINE HCL 100 MG TABLET (FP) PO SCH (22:20)
[2018-01-20] MEDS: ZOLPIDEM TARTRATE 5 MG TABLET PO PRN (22:21)
[2018-01-20] MEDS: LIDOCAINE PATCH REMOVAL MC SCH (23:56)
[2018-01-21] MEDS: diazePAM 5 MG TABLET PO PRN ×3 (00:59→13:42)
[2018-01-21] MEDS: MENTHOL/PHENOL 1 EACH UD MM PRN ×2 (01:02→07:39)
[2018-01-21] MEDS ORDERED: METHADONE HCL 40 MG DISPERSABLE TABLET ONE (04:58)
[2018-01-21] MEDS ORDERED: METHADONE HCL 10 MG TABLET ONE (04:58)
[2018-01-21] MEDS: METHADONE 80 MG, METHADONE 20 MG PO SCH (06:04)
[2018-01-21] MEDS: AMOX TR/POT CLAV 875MG/125MG TABLETS (FP) PO SCH ×2 (06:59→18:25)
[2018-01-21] MEDS: cloNIDine HCL 0.1 MG TABLET PO PRN ×2 (07:39→21:07)
[2018-01-21] MEDS: diazePAM 5 MG TABLET PO SCH ×2 (10:14→22:03)
[2018-01-21] MEDS: NICOTINE 21 MG/24 HOURS TOPICAL PATCH TD SCH (10:14)
[2018-01-21] MEDS: PRENATAL VITAMINS W/ FOLIC ACID TABLET (FP) PO SCH (10:14)
[2018-01-21] MEDS: LIDOCAINE 5% TOPICAL PATCH TP SCH (10:15)
[2018-01-21] MEDS: BACLOFEN 10 MG TABLET (FP) PO PRN ×2 (10:21→18:43)
--- NOTE | 2018-01-21 11:13 | PN ---
S Progress Note (SOAP) Subjective: feeling better no tremor no gi distress social with peers in day room Objective: 01/21/18 11:12 Vital Signs Temperature 97.7 F 01/21/18 09:33 Pulse Rate 63 01/21/18 09:33 Respiratory Rate 18 01/21/18 09:33 Blood Pressure 120/65 01/21/18 09:33 O2 Sat by Pulse Oximetry (%) Laboratory Last Values WBC 12.0 K/mm3 (4.0-10.0) H 01/19/18 06:00 RBC 4.37 M/mm3 (3.60-5.2) 01/19/18 06:00 Hgb 12.5 GM/dL (10.7-15.3) 01/19/18 06:00 Hct 38.0 % (32.4-45.2) 01/19/18 06:00 MCV 87.0 fl (80-96) 01/19/18 06:00 MCH 28.6 pg (25.7-33.7) 01/19/18 06:00 MCHC 32.8 g/dl (32.0-36.0) 01/19/18 06:00 RDW 14.5 % (11.6-15.6) 01/19/18 06:00 Plt Count 340 K/MM3 (134-434) 01/19/18 06:00 MPV 9.3 fl (7.5-11.1) D 01/19/18 06:00 Sodium 142 mmol/L (136-145) 01/19/18 06:00 Potassium 4.2 mmol/L (3.5-5.1) 01/19/18 06:00 Chloride 107 mmol/L (98-107) 01/19/18 06:00 Carbon Dioxide 28 mmol/L (21-32) 01/19/18 06:00 Anion Gap 7 (8-16) L 01/19/18 06:00 BUN 12 mg/dL (7-18) 01/19/18 06:00 Creatinine 1.2 mg/dL (0.55-1.02) H 01/19/18 06:00 Creat Clearance w eGFR 52.06 (>60) 01/19/18 06:00 Random Glucose 84 mg/dL (74-106) 01/19/18 06:00 Calcium 8.9 mg/dL (8.5-10.1) 01/19/18 06:00 Total Bilirubin 0.3 mg/dL (0.2-1.0) 01/19/18 06:00 AST 15 U/L (15-37) 01/19/18 06:00 ALT 21 U/L (12-78) 01/19/18 06:00 Alkaline Phosphatase 101 U/L (45-117) 01/19/18 06:00 Total Protein 7.6 g/dl (6.4-8.2) 01/19/18 06:00 Albumin 3.9 g/dl (3.4-5.0) 01/19/18 06:00 Urine Color Dorothy 01/18/18 Unknown Urine Appearance Cloudy 01/18/18 Unknown Urine pH 5.0 (5.0-8.0) 01/18/18 Unknown Ur Specific [place] 1.027 (1.001-1.035) 01/18/18 Unknown Urine Protein 1+ (NEGATIVE) H 01/18/18 Unknown Urine Glucose (UA) Negative (NEGATIVE) 01/18/18 Unknown Urine Ketones Negative (NEGATIVE) 01/18/18 Unknown Urine Blood 3+ (NEGATIVE) H 01/18/18 Unknown Urine Nitrite Negative (NEGATIVE) 01/18/18 Unknown Urine Bilirubin Negative (<2.0 mg/dL) 01/18/18 Unknown Urine Urobilinogen 2.0 mg/dL (0.2-1.0) H 01/18/18 Unknown Ur Leukocyte Esterase Trace (NEGATIVE) 01/18/18 Unknown Urine WBC (Auto) 18 /hpf (3-5) 01/18/18 Unknown Urine RBC (Auto) 638 /hpf (0-3) 01/18/18 Unknown Ur Epithelial Cells Many /HPF (FEW) 01/18/18 Unknown Urine Bacteria Moderate /hpf (NONE SEEN) 01/18/18 Unknown Hyaline Casts 15 /lpf 01/18/18 Unknown Urine Mucus Moderate 01/18/18 Unknown RPR Titer Nonreactive (NONREACTIVE) 01/19/18 06:00 lab noted Assessment: 01/21/18 11:13 mild withdrawal sx Plan: medically supervised detox
[2018-01-21] MEDS: GABAPENTIN 300 MG CAPSULE (FP) PO SCH ×2 (13:42→22:02)
[2018-01-21] MEDS: THIAMINE HCL 100 MG TABLET (FP) PO SCH (22:02)
[2018-01-21] MEDS: LIDOCAINE PATCH REMOVAL MC SCH (22:03)
[2018-01-21] MEDS: ZOLPIDEM TARTRATE 5 MG TABLET PO PRN (22:05)
[2018-01-22] MEDS: BACLOFEN 10 MG TABLET (FP) PO PRN (02:06)
[2018-01-22] MEDS ORDERED: METHADONE HCL 10 MG TABLET ONE (04:18)
[2018-01-22] MEDS ORDERED: METHADONE HCL 40 MG DISPERSABLE TABLET ONE (04:18)
[2018-01-22] MEDS: METHADONE 80 MG, METHADONE 20 MG PO SCH (05:27)
[2018-01-22] MEDS: GABAPENTIN 300 MG CAPSULE (FP) PO SCH (05:28)
[2018-01-22] MEDS: IBUPROFEN 400 MG TABLET (FP) PO PRN (05:30)
[2018-01-22 06:19] VITALS: BP 134/74; PULSE 87; TEMP 98.9
[2018-01-22] MEDS: AMOX TR/POT CLAV 875MG/125MG TABLETS (FP) PO SCH (08:18)
[2018-01-22] MEDS: PRENATAL VITAMINS W/ FOLIC ACID TABLET (FP) PO SCH (09:02)
[2018-01-22] MEDS: LIDOCAINE 5% TOPICAL PATCH TP SCH (09:04)
[2018-01-22] MEDS: NICOTINE 21 MG/24 HOURS TOPICAL PATCH TD SCH (09:07)
[2018-01-22] MEDS ORDERED: diazePAM 5 MG TABLET PO SCH (10:00)
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
--- NOTE | 2018-01-22 14:49 | DS ---
[facility] Detox Discharge Summary Admission Date: 01/18/18 Discharge Date: 01/22/18 - History Present History: Sedative Dependence, MMTP Pertinent Past History: pt is in [facility], has been using zanax. Wants to stop using. Says she wants to go to rehab but wants to see and be with her boyfriend this weekend - Physical Exam Results Vital Signs: Vital Signs Temperature 98.9 F 01/22/18 06:18 Pulse Rate 87 01/22/18 06:18 Respiratory Rate 18 01/22/18 06:18 Blood Pressure 134/74 01/22/18 06:18 O2 Sat by Pulse Oximetry (%) Pertinent Admission Physical Exam Findings: was here for xanax detox - Treatment Hospital Course: Detox Protocol Followed, Detoxed Safely, Responded well, Discharged Condition Good Patient has Accepted a Rehab Referral to: maybe next week to rehab per pt - Medication Discharge Medications: Ambulatory Orders Albuterol Sulfate Inhaler - [Ventolin HFA Inhaler -] 2 inh PO Q4H PRN #1 inhaler 01/21/18 Amox-Tr/K Cl [Augmentin 875-125mg Tablet -] 1 tab PO BID@0800,1730 #7 tablet 12/04 Gabapentin [Neurontin -] 300 mg PO TID #90 capsule 01/21/18 - Diagnosis (1) Opioid dependence Status: Active (2) Opioid dependence on agonist therapy Status: Acute (3) Sedative, hypnotic or anxiolytic dependence with withdrawal, uncomplicated Status: Acute - AMA Did Patient Leave Against Medical Advice: No
== END 2018-01-22 09:53 | disposition home or self-care (01) | DRG 773 ==
LOC: YASAS 11:02 → Y6N 15:32
PROVIDERS: ADMIT Surgery; ATTEND Surgery
PROC: HZ2ZZZZ Detoxification Services for Substance Abuse Treatment (ICD-10-PCS; principal; 2018-01-18)
DX: F11.20 Opioid dependence, uncomplicated (principal); F13.230 Sedative, hypnotic or anxiolytic dependence with withdrawal, uncomplicated; F12.20 Cannabis dependence, uncomplicated; F17.213 Nicotine dependence, cigarettes, with withdrawal; F19.24 Other psychoactive substance dependence with psychoactive substance-induced mood disorder; G40.509 Epileptic seizures related to external causes, not intractable, without status epilepticus; K04.7 Periapical abscess without sinus; E66.9 Obesity, unspecified; Z68.31 Body mass index [BMI] 31.0-31.9, adult
CPT/HCPCS: 36415; 80053; 81003; 81015; 85027; 86593; 93005; 93010; J0475; J0735

== ENCOUNTER 2018-06-16 09:48 | Inpatient (IN) | payer OTHER ==
[2018-06-16 10:52] VITALS: BMI 30.2
--- NOTE | 2018-06-16 11:39 | HP ---
CIWA Score Nausea/Vomitin-Mild Nausea/No Vomiting Muscle Tremors: 2 Anxiety: 3 Agitation: 2 Paroxysmal Sweats: 2 Orientation: 0-Oriented Tacttile Disturbances: 1-Very Mild Itch/Numbness Auditory Disturbances: 0-None Visual Disturbances: 0-None Headache: 2-Mild CIWA-Ar Total Score: 13 - Admission Criteria OASAS Guidelines: Admission for Medically Managed Detox: Requires at least one of the followin. CIWA greater than 12 2. Seizures within the past 24 hours 3. Delirium tremens within the past 24 hours 4. Hallucinations within the past 24 hours 5. Acute intervention needed for co occurring medical disorder 6. Acute intervention needed for co occurring psychiatric disorder 7. Severe withdrawal that cannot be handled at a lower level of care (continued vomiting, continued diarrhea, abnormal vital signs) requiring intravenous medication and/or fluids 8. Patient presents the following: CIWA greater than 12 Admission Criteria Met: Admission criteria met Admission ROS [facility] - HPI Chief Complaint: I need to stop using xanax , my counselors from [facility] strongly recommended detox. Allergies/Adverse Reactions: Allergies Allergy/AdvReac Type Severity Reaction Status Date / Time No Known Allergies Allergy Verified 06/16/18 10:53 History of Present Illness: 33y/o f pt on MAT with methadone 100mg/d referred by [facility] because of on going benzo dep. Pt has been using benzos since 2011 . At present using xanax 10mg /d . Exam Limitations: No Limitations - Ebola screening Have you traveled outside of the country in the last 21 days: No Have you had contact with anyone from an Ebola affected area: No Have you been sick,other than usual withdrawal symptoms: No Do you have a fever: No - Review of Systems Constitutional: Other (anxious ,) EENT: reports: Nose Congestion Respiratory: reports: Cough Cardiac: reports: No Symptoms Reported GI: reports: Constipated, Diarrhea : reports: Frequency Musculoskeletal: reports: Back Pain (and spasms), Muscle Pain (legs anabel) Integumentary: reports: Sweating Neuro: reports: Seizure (last in 2017 benzo withdrawal sz), Tremors Endocrine: reports: No Symptoms Reported Hematology: reports: No Symptoms Reported Psychiatric: reports: Orientated x3, Anxious, Depressed Other Systems: Reviewed and Negative Patient History - Patient Medical History Hx Anemia: No Hx Asthma: Yes (Pt is on MDI) Hx Chronic Obstructive Pulmonary Disease (COPD): No Hx Cancer: No Hx Cardiac Disorders: No Hx Congestive Heart Failure: No Hx Hypertension: No Hx Hypercholesterolemia: No Hx Pacemaker: No HX Cerebrovascular Accident: No Hx Seizures: Yes (xanax related last in 2016) Hx Dementia: No Hx Diabetes: No Hx Gastrointestinal Disorders: No Hx Liver Disease: No Hx Genitourinary Disorders: No Hx Sexually Transmitted Disorders: No Hx Renal Disease (ESRD): No Hx Thyroid Disease: No Hx Human Immunodeficiency Virus (HIV): No (06/01 last tested;NEGATIVE HX) Hx Hepatitis C: No Hx Depression: Yes (no meds >1yr) Hx Suicide Attempt: No Hx Bipolar Disorder: Yes (no meds >1 yr) Hx Schizophrenia: No Other Medical History: Attends [facility]- on methadone 100mg/d, LDOM- . - Patient Surgical History Past Surgical History: Yes Hx Neurologic Surgery: No Hx Cataract Extraction: No Hx Cardiac Surgery: No Hx Lung Surgery: No Hx Breast Surgery: No Hx Breast Biopsy: No Hx Abdominal Surgery: No Hx Appendectomy: No Hx Cholecystectomy: No Hx Genitourinary Surgery: Yes (removal of ovarian cyst in ) Hx Section: No Hx Orthopedic Surgery: No Hx Hysterectomy: No Other Surgical History: tonsillectomy at age 8;D&C 03/2017 Anesthesia Reaction: No - PPD History Previous Implant?: Yes Documented Results: Negative w/proof Implanted On Prior [facility] Admission?: Yes Date: 07/19/17 Results: 0 mm - Reproductive History Last Menstrual Period: 05/21/18 Patient : No - Smoking Cessation Smoking history: Current every day smoker Have you smoked in the past 12 months: Yes Aproximately how many cigarettes per day: 20 Cigars Per Day: 0 Hx Chewing Tobacco Use: No Initiated information on smoking cessation: Yes 'Breaking Loose' booklet given: 06/16/18 - Substance & Tx. History Hx Alcohol Use: No Hx Substance Use: Yes Substance Use Type: Tranquilizers Hx Substance Use Treatment: Yes - Substances Abused Alprazolam (Xanax) Route: Oral Frequency: Daily Amount used: 10mg/day Age of first use: 26 Date of Last Use: 06/15/18 Marijuana/Hashish Route: Smoking Frequency: 3-6 times per week Amount used: 1 joint Age of first use: 16 Date of Last Use: 06/02/18 Family Disease History - Family Disease History Family Disease History: Other: Father (alcohol,dsa), Mother (alcohol ) Admission Physical Exam [facility] - Vital Signs Vital Signs: Vital Signs - 24 hr 06/16/18 10:50 Temperature 97.7 F Pulse Rate 73 Respiratory 20 Rate Blood Pressure 127/73 33 y/o anxious f pt aox3 in nad , ambulating and well groomed with hoarse voice . - Physical General Appearance: Yes: Appropriately Dressed, Obese, Anxious HEENTM: Yes: EOMI, Hearing grossly Normal, Normal ENT Inspection, Nasal Congestion, Muffled/Hoarse Voice Respiratory: Yes: Chest Non-Tender, Lungs Clear, Normal Breath Sounds, No Respiratory Distress Neck: Yes: Within Normal Limits, No masses,lesions,Nodules, Supple, Trachea in good position Breast: Yes: Breast Exam Deferred Cardiology: Yes: Within Normal Limits, Regular Rhythm, Regular Rate, S1, S2 Abdominal: Yes: Within Normal Limits, Normal Bowel Sounds, Non Tender, Soft, Increased Bowel Sounds, Protuberent Genitourinary: Yes: Frequency Back: Yes: Decreased Range of Motion Musculoskeletal: Yes: Back pain, Muscle Pain, Other (rt leg pains) Extremities: Yes: Tremors Neurological: Yes: silk conditioner II-XII NML intact, Fully Oriented, Alert, Motor Strength 5/5 Integumentary: Yes: Moist Lymphatic: Yes: Within Normal Limits - Diagnostic (1) Cannabis dependence, uncomplicated Current Visit: Yes Status: Chronic (2) Nicotine dependence Current Visit: Yes Status: Chronic Qualifiers: Nicotine product type: cigarettes Substance use status: uncomplicated Qualified Code(s): F17.210 - Nicotine dependence, cigarettes, uncomplicated (3) Sedative, hypnotic or anxiolytic dependence with withdrawal, uncomplicated Current Visit: Yes Status: Chronic (4) Methadone maintenance therapy patient Current Visit: Yes Status: Chronic (5) Obesity (BMI 30.0-34.9) Current Visit: Yes Status: Chronic (6) Seizure Current Visit: No Status: Suspected Qualifiers: Convulsion type: unspecified Qualified Code(s): R56.9 - Unspecified convulsions Comment: NOT SURE, BUT STATES DUE TO WITHDRAWAL SX Cleared for Admission [facility] - Detox or Rehab [facility] Level of Care: Medically Managed Detox Regimen/Protocol: Valium Claeared for Rehab Admission: No [facility] Breath Alcohol Content Breath Alcohol Content: 0 Urine Pregancy Test - Result Urine Test Results: Negative- NO Line Present Urine Drug Screen - Results Drug Screen Negative: No Urine Drug Screen Results: THC-Marijuana, BZO-Benzodiazepines, MTD-Methadone
[2018-06-16] MEDS ORDERED: hydrOXYzine PAMOATE 25 MG CAPSULE (FP) PO PRN (11:56)
[2018-06-16] MEDS ORDERED: MAGNESIUM HYDROX 2400MG/30ML ORAL SUSPENSION 30 ML CUP PO PRN (11:56)
[2018-06-16] MEDS ORDERED: ACETAMINOPHEN 325 MG TABLET (FP) PO PRN (11:56)
[2018-06-16] MEDS ORDERED: guaiFENesin/D-METHORPHAN HB 10 ML UNIT-DOSE CUPS PO PRN (11:56)
[2018-06-16] MEDS ORDERED: IBUPROFEN 400 MG TABLET (FP) PO PRN (11:56)
[2018-06-16] MEDS ORDERED: LOPERAMIDE HCL 2 MG CAPSULE PO PRN (11:56)
[2018-06-16] MEDS ORDERED: P-EPHED 60MG/TRIPROLIDI 2.5MG TABLET PO PRN (11:56)
[2018-06-16] MEDS ORDERED: NICOTINE POLACRILEX 4 MG GUM BUC PRN (11:56)
[2018-06-16] MEDS ORDERED: MAG HYDROX/AL HYDROX/SIMETH 30 ML UNIT-DOSE CUP PO PRN (11:56)
[2018-06-16] MEDS ORDERED: MAGNESIUM CITRATE 300 ML BOTTLE PO PRN (11:56)
[2018-06-16] MEDS ORDERED: MENTHOL/PHENOL 1 EACH UD MM PRN (11:56)
[2018-06-16] MEDS ORDERED: ALBUTEROL SO4 8 GM HFA INHALER IH PRN (12:06)
[2018-06-16] MEDS ORDERED: LIDOCAINE 5% TOPICAL PATCH TP ONE (12:25)
[2018-06-16] MEDS ORDERED: diazePAM 5 MG TABLET PO ONE (12:30)
[2018-06-16] MEDS: CYCLOBENZAPRINE HCL 5 MG TABLET PO SCH ×2 (13:34→22:19)
[2018-06-16] MEDS ORDERED: CYCLOBENZAPRINE HCL 5 MG TABLET PO SCH (14:00)
[2018-06-16] MEDS: diazePAM 5 MG TABLET PO SCH ×2 (15:52→22:19)
--- NOTE | 2018-06-16 16:47 | CONSULT ---
[facility] Psychiatric Consult - Data Date of interview: 06/16/18 Admission source: [facility] Identifying data: Readmission to [facility] for this 33 y/o female seeking detoxification treatment on for cannabis, xanax and opioid dependence. Patient is single, a mother of one, domiciled, unemployed and supported by her fiance/relatives. Substance Abuse History: Confirmed by patient in this session. Details in current [facility] report : Smoking history: Current every day smoker. Have you smoked in the past 12 months: Yes. Aproximately how many cigarettes per day: 20. Cigars Per Day: 0. Hx Chewing Tobacco Use: No. Initiated information on smoking cessation: Yes. 'Breaking Loose' booklet given: 06/16/18. - Substance & Tx. History. Hx Alcohol Use: No. Hx Substance Use: Yes. Substance Use Type : Tranquilizers. Hx Substance Use Treatment: Yes. - Substances Abused. Alprazolam (Xanax). Route: Oral. Frequency: Daily. Amount used: 10mg/day. Age of first use: 26. Date of Last Use: 06/15/18. Marijuana/Hashish. Route : Smoking. Frequency: 3-6 times per week. Amount used: 1 joint. Age of first use: 16. Date of Last Use: 06/02/18 Medical History: History of pelvic surgery in 2002 + 2006 (excision of ovarian cysts), history of D+C (termination of in March 2017) + antecedent of tonsillectomy (childhood). Psychiatric History: Patient denies history of psychiatric hospitalizations. Ms Duckworth is currently on [facility] ([facility]) [facility]. Additional psychiatric diagnoses : MDD and Generalized Anxiety Disorder (self- report).Patient admits to buying xanax from street dealers. On no prescribed psychotropic medications other than methadone. Discharged from [facility], in the past, on seroquel 50 mg/hs to address insomnia. No reported history of suicide attempts. Physical/Sexual Abuse/Trauma History: Patient denies. Additional Comment: Urine Drug Screen Results: THC-Marijuana, BZO- Benzodiazepines, MTD-Methadone. Noted. Mental Status Exam - Mental Status Exam Alert and Oriented to: Time, Place, Person Cognitive Function: Good Patient Appearance: Well Groomed Mood: Withdrawn, Anxious Affect: Mood Congruent, Constricted Patient Behavior: Fatigued, Appropriate, Cooperative Speech Pattern: Clear Voice Loudness: Normal Thought Process: Goal Oriented Thought Disorder: Not Present Hallucinations: Denies Suicidal Ideation: Denies Homicidal Ideation: Denies Insight/Judgement: Poor Sleep: Poorly, Difficulty falling asleep (wants seroquel) Appetite: Good Muscle strength/Tone: Normal Gait/Station: Normal Psychiatric Findings - Problem List ([place] 1, 2,3) (1) Opioid dependence on agonist therapy Current Visit: Yes Status: Acute (2) Sedative, hypnotic or anxiolytic dependence with withdrawal, uncomplicated Current Visit: Yes Status: Acute (3) Cannabis dependence, uncomplicated Current Visit: Yes Status: Acute (4) Substance induced mood disorder Current Visit: Yes Status: Acute (5) Insomnia Current Visit: Yes Status: Acute - Initial Treatment Plan Initial Treatment Plan: Psychoeducation. Sleep hygiene. Detoxification in progress. Seroquel 50 mg po hs (patient's request). Ordered. Side effects/ benefits discussed with the patient. Ms Duckworth is in agreement with this plan of care.
[2018-06-16] MEDS: diazePAM 5 MG TABLET PO PRN (17:11)
[2018-06-16] MEDS ORDERED: LIDOCAINE PATCH REMOVAL MC SCH (22:00)
[2018-06-16] MEDS ORDERED: MELATONIN 5 MG TABLETS PO PRN (22:00)
[2018-06-16] MEDS ORDERED: NORGESTIMATE ETHINYL ESTRADIOL PO SCH (22:00)
[2018-06-16] MEDS ORDERED: THIAMINE HCL 100 MG TABLET (FP) PO SCH (22:00)
[2018-06-16 23:25] LABS: URINE APPEARANCE SLCLOUDY; URINE BILIRUBIN NEGATIVE (<2.0 mg/dL); URINE COLOR DKYELLOW; URINE GLUCOSE (UA) NEGATIVE (NEGATIVE); URINE KETONE NEGATIVE (NEGATIVE); URINE LEUK ESTERASE TRACE (NEGATIVE); URINE NITRITE NEGATIVE (NEGATIVE); URINE PROTEIN NEGATIVE (NEGATIVE); URINE UROBILINOGEN NEGATIVE mg/dL (0.2-1.0)
[2018-06-16 23:27] LABS: EPI CELLS MANY /HPF (FEW); URINE BACTERIA MODERATE /hpf (NONE SEEN); URINE MUCUS RARE
[2018-06-17] MEDS: diazePAM 5 MG TABLET PO PRN ×2 (03:03→10:04)
[2018-06-17] MEDS: CYCLOBENZAPRINE HCL 5 MG TABLET PO SCH ×2 (05:34→16:31)
[2018-06-17] MEDS: diazePAM 5 MG TABLET PO SCH ×2 (05:34→16:31)
[2018-06-17] MEDS ORDERED: METHADONE HCL 10 MG TABLET PO SCH ×2 (06:30→06:34)
[2018-06-17] MEDS ORDERED: METHADONE HCL 10 MG TABLET ONE (06:54)
[2018-06-17] MEDS ORDERED: METHADONE HCL 40 MG DISPERSABLE TABLET ONE (06:54)
[2018-06-17] MEDS ORDERED: METHADONE 80 MG, METHADONE 20 MG PO SCH (07:00)
[2018-06-17] MEDS ORDERED: NICOTINE 21 MG/24 HOURS TOPICAL PATCH TD SCH (10:00)
[2018-06-17] MEDS ORDERED: PRENATAL VITAMINS W/ FOLIC ACID TABLET (FP) PO SCH (10:00)
--- NOTE | 2018-06-17 10:26 | PN ---
S CIWA - CIWA Score Nausea/Vomitin-No Nausea/No Vomiting Muscle Tremors: 4-Moderate,w/Arms Extend Anxiety: 3 Agitation: 3 Paroxysmal Sweats: 3 Orientation: 0-Oriented Tacttile Disturbances: 0-None Auditory Disturbances: 0-None Visual Disturbances: 0-None Headache: 1-Very Mild CIWA-Ar Total Score: 14 B[facility] Progress Note (SOAP) Subjective: agitation sweats chronic pain to lower back radiating down to leg shakes interrupted sleep Objective: 06/17/18 10:29 Vital Signs Temperature 98.4 F 06/17/18 10:02 Pulse Rate 74 06/17/18 10:02 Respiratory Rate 18 06/17/18 10:02 Blood Pressure 120/77 06/17/18 10:02 O2 Sat by Pulse Oximetry (%) Laboratory Tests 06/16/18 22:00 Urine Color Dkyellow Urine Appearance Slcloudy Urine pH 6.0 Ur Specific [place] 1.018 Urine Protein Negative Urine Glucose (UA) Negative Urine Ketones Negative Urine Blood 2+ H Urine Nitrite Negative Urine Bilirubin Negative Urine Urobilinogen Negative Ur Leukocyte Esterase Trace Urine WBC (Auto) 3 Urine RBC (Auto) 2 Ur Epithelial Cells Many Urine Bacteria Moderate Urine Mucus Rare rest of labs pending repeat u/a aaox3 ambulating no acute distress Assessment: 06/17/18 10:31 withdrawal sx Plan: continue detox increase fluids motrin 600mg prn gabapentin 100mg tid clonidine 0.1mg daily with parameter lidocaine patch daily
[2018-06-17 10:33] LABS: HEMATOCRIT 38.8 % (32.4-45.2); HEMOGLOBIN 12.3 GM/dL (10.7-15.3); MCH 27.4 pg (25.7-33.7); MCHC 31.7 g/dl (32.0-36.0); MEAN CELL VOLUME 86.5 fl (80-96); MEAN PLT VOLUME 9.6 fl (7.5-11.1); PLATELET COUNT 299 K/MM3 (134-434); RBC 4.48 M/mm3 (3.60-5.2); RDW 14.7 % (11.6-15.6); WHITE BLOOD COUNT 9.1 K/mm3 (4.0-10.0)
[2018-06-17] MEDS ORDERED: LIDOCAINE 5% TOPICAL PATCH TP SCH (11:00)
[2018-06-17] MEDS ORDERED: cloNIDine HCL 0.1 MG TABLET PO SCH (11:00)
[2018-06-17 11:23] LABS: ALBUMIN 3.7 g/dl (3.4-5.0); ALK PHOS 103 U/L (45-117); ANION GAP 12 MMOL/L (8-16); BILIRUBIN,TOTAL 0.3 mg/dL (0.2-1); BLOOD UREA NITROGEN 8 mg/dL (7-18); CHLORIDE 104 mmol/L (98-107); CO2 23 mmol/L (21-32); GLUCOSE,RANDOM 93 mg/dL (74-106); POTASSIUM 4.5 mmol/L (3.5-5.1); SGOT/AST 22 U/L (15-37); SGPT/ALT 19 U/L (13-61); SODIUM 139 mmol/L (136-145); TOT PROT 7.2 g/dl (6.4-8.2)
[2018-06-17] MEDS ORDERED: GABAPENTIN 100 MG CAPSULE (FP) PO SCH (14:00)
[2018-06-17 14:29] VITALS: BP 89/55; PULSE 66; TEMP 98.2
--- NOTE | 2018-06-17 15:06 | PN ---
[facility] Progress Note Note: found pills in patient's pocket appears to be clonazipine
--- NOTE | 2018-06-17 15:50 | DS ---
[facility] Detox Discharge Summary Admission Date: 06/16/18 Discharge Date: 06/17/18 - History Present History: Sedative Dependence Additional Comments: 33 years old female admitted on 06/16/18 for benzo withdrawal sx the nurse found pills in patient's pocket appeared to be benzo (klonopine) another patient stated that the patient was sharing the pills with other patients earlier today patient is alert oriented x 3 no acute distress speech clearly coherently denies suicidal denies homocidal no self destructive behavior patient stated that she needs those pills when the regimen keep reducing the behavior produced harm to patient herself and other patients on board case discuss with Dr. Szymanski Assistance [employer] Maintenance Technician that post harm to patients can not be tolerated - Physical Exam Results Vital Signs: Vital Signs Temperature 98.2 F 06/17/18 14:28 Pulse Rate 66 06/17/18 14:28 Respiratory Rate 17 06/17/18 14:28 Blood Pressure 89/55 L 06/17/18 14:28 O2 Sat by Pulse Oximetry (%) Pertinent Admission Physical Exam Findings: benzo withdrawal sx Vital Signs Temperature 98.2 F 06/17/18 14:28 Pulse Rate 66 06/17/18 14:28 Respiratory Rate 17 06/17/18 14:28 Blood Pressure 89/55 L 06/17/18 14:28 O2 Sat by Pulse Oximetry (%) Laboratory Last Values WBC 9.1 K/mm3 (4.0-10.0) 06/17/18 06:00 RBC 4.48 M/mm3 (3.60-5.2) 06/17/18 06:00 Hgb 12.3 GM/dL (10.7-15.3) 06/17/18 06:00 Hct 38.8 % (32.4-45.2) 06/17/18 06:00 MCV 86.5 fl (80-96) 06/17/18 06:00 MCH 27.4 pg (25.7-33.7) 06/17/18 06:00 MCHC 31.7 g/dl (32.0-36.0) L 06/17/18 06:00 RDW 14.7 % (11.6-15.6) 06/17/18 06:00 Plt Count 299 K/MM3 (134-434) 06/17/18 06:00 MPV 9.6 fl (7.5-11.1) 06/17/18 06:00 Sodium 139 mmol/L (136-145) 06/17/18 06:00 Potassium 4.5 mmol/L (3.5-5.1) 06/17/18 06:00 Chloride 104 mmol/L (98-107) 06/17/18 06:00 Carbon Dioxide 23 mmol/L (21-32) 06/17/18 06:00 Anion Gap 12 MMOL/L (8-16) 06/17/18 06:00 BUN 8 mg/dL (7-18) 06/17/18 06:00 Creatinine 1.0 mg/dL (0.55-1.3) 06/17/18 06:00 Creat Clearance w eGFR > 60 (>60) 06/17/18 06:00 Random Glucose 93 mg/dL (74-106) 06/17/18 06:00 Calcium 9.0 mg/dL (8.5-10.1) 06/17/18 06:00 Total Bilirubin 0.3 mg/dL (0.2-1) 06/17/18 06:00 AST 22 U/L (15-37) 06/17/18 06:00 ALT 19 U/L (13-61) 06/17/18 06:00 Alkaline Phosphatase 103 U/L (45-117) 06/17/18 06:00 Total Protein 7.2 g/dl (6.4-8.2) 06/17/18 06:00 Albumin 3.7 g/dl (3.4-5.0) 06/17/18 06:00 Urine Color Dkyellow 06/16/18 22:00 Urine Appearance Slcloudy 06/16/18 22:00 Urine pH 6.0 (5.0-8.0) 06/16/18 22:00 Ur Specific [place] 1.018 (1.010-1.035) 06/16/18 22:00 Urine Protein Negative (NEGATIVE) 06/16/18 22:00 Urine Glucose (UA) Negative (NEGATIVE) 06/16/18 22:00 Urine Ketones Negative (NEGATIVE) 06/16/18 22:00 Urine Blood 2+ (NEGATIVE) H 06/16/18 22:00 Urine Nitrite Negative (NEGATIVE) 06/16/18 22:00 Urine Bilirubin Negative (<2.0 mg/dL) 06/16/18 22:00 Urine Urobilinogen Negative mg/dL (0.2-1.0) 06/16/18 22:00 Ur Leukocyte Esterase Trace (NEGATIVE) 06/16/18 22:00 Urine WBC (Auto) 3 /hpf (3-5) 06/16/18 22:00 Urine RBC (Auto) 2 /hpf (0-3) 06/16/18 22:00 Ur Epithelial Cells Many /HPF (FEW) 06/16/18 22:00 Urine Bacteria Moderate /hpf (NONE SEEN) 06/16/18 22:00 Urine Mucus Rare 06/16/18 22:00 RPR Titer Nonreactive (NONREACTIVE) 06/17/18 06:00 bp 135/85 ap 80 lab noted - Treatment Hospital Course: Detox Protocol Followed, Responded well Patient has Accepted a Rehab Referral to: return to methadone program - Medication Discharge Medications: Ambulatory Orders Albuterol Sulfate Inhaler - [Ventolin HFA Inhaler -] 2 inh PO Q4H PRN #1 inhaler 01/21/18 Norgestimate-Ethinyl Estradiol [Tri Femynor 28 Tablet] 1 each PO HS 06/16/18 - Diagnosis (1) Substance induced mood disorder Current Visit: Yes Status: Acute (2) Methadone maintenance therapy patient Current Visit: Yes Status: Chronic (3) Nicotine dependence Current Visit: Yes Status: Chronic Qualifiers: Nicotine product type: cigarettes Substance use status: uncomplicated Qualified Code(s): F17.210 - Nicotine dependence, cigarettes, uncomplicated (4) Sedative, hypnotic or anxiolytic dependence with withdrawal, uncomplicated Current Visit: Yes Status: Chronic - AMA Did Patient Leave Against Medical Advice: No
[2018-06-17] MEDS ORDERED: LIDOCAINE PATCH REMOVAL MC SCH (22:00)
[2018-06-17] MEDS ORDERED: [UNRECOGNIZED DRUG - OTHER] PO SCH (22:00)
[2018-06-18] MEDS ORDERED: diazePAM 5 MG TABLET PO SCH (10:00)
[2018-06-20] MEDS ORDERED: diazePAM 5 MG TABLET PO SCH (10:00)
== END 2018-06-17 15:46 | disposition left against medical advice (07) | DRG 773 ==
LOC: YASAS 09:48 → Y6N 12:15
PROC: HZ2ZZZZ Detoxification Services for Substance Abuse Treatment (ICD-10-PCS; principal; 2018-06-17)
DX: F10.230 Alcohol dependence with withdrawal, uncomplicated (principal); F13.230 Sedative, hypnotic or anxiolytic dependence with withdrawal, uncomplicated; F12.20 Cannabis dependence, uncomplicated; F11.20 Opioid dependence, uncomplicated; F17.213 Nicotine dependence, cigarettes, with withdrawal; F19.24 Other psychoactive substance dependence with psychoactive substance-induced mood disorder; F10.24 Alcohol dependence with alcohol-induced mood disorder; F10.282 Alcohol dependence with alcohol-induced sleep disorder; F51.05 Insomnia due to other mental disorder; K05.219 Aggressive periodontitis, localized, unspecified severity; R55 Syncope and collapse; R56.9 Unspecified convulsions; R63.5 Abnormal weight gain; Z68.32 Body mass index [BMI] 32.0-32.9, adult; F91.8 Other conduct disorders; Z91.19 Patient's noncompliance with other medical treatment and regimen
CPT/HCPCS: 36415; 80053; 81003; 81015; 85027; 86593; J0735

== ENCOUNTER 2018-12-14 10:17 | Inpatient (IN) | payer OTHER ==
[2018-12-14 11:07] VITALS: BMI 32.1
--- NOTE | 2018-12-14 12:27 | HP ---
"CIWA Score Nausea/Vomitin-No Nausea/No Vomiting Muscle Tremors: None Anxiety: 4-Mod. Anxious/Guarded Agitation: 4-Moderately Restless Paroxysmal Sweats: No Perspiration Orientation: 0-Oriented Tacttile Disturbances: 0-None Auditory Disturbances: 0-None Visual Disturbances: 2-Mild Sensitivity Headache: 4-Moderately Severe CIWA-Ar Total Score: 14 - Admission Criteria OASAS Guidelines: Admission for Medically Managed Detox: Requires at least one of the followin. CIWA greater than 12 2. Seizures within the past 24 hours 3. Delirium tremens within the past 24 hours 4. Hallucinations within the past 24 hours 5. Acute intervention needed for co occurring medical disorder 6. Acute intervention needed for co occurring psychiatric disorder 7. Severe withdrawal that cannot be handled at a lower level of care (continued vomiting, continued diarrhea, abnormal vital signs) requiring intravenous medication and/or fluids 8. Admission [facility] Allergies/Adverse Reactions: Allergies Allergy/AdvReac Type Severity Reaction Status Date / Time No Known Allergies Allergy Verified 12/14/18 10:54 History of Present Illness: pt here requesting detox from xanax use , reports 10 mg / day , latest use yesterday , current symptoms as above , first age of use 26 , + w/d seizure 2 years ago , was on Depakote in the past while in rehab . Was previousy on Klonopin x 3 years then illcitly using xanax . on [facility] 100 mg daily since 5 years ago denies etoh denies other illicits cannabis - latest use 2 months ago , claims very rarely using tobacco : 1/2 ppd pmhx : ovarian cysts , asthma pshx : induced at 5 mo 2/2 congenital malformation of fetus , ovarian cysts , corionic psych : depression , anxiety , bipolar d/o , mood d/o meds : prozac , remeron lmp 1 week ago . , has 13 yr old son , currently w/ maternal GM . Search Terms: zeus yoder, 12/18/1984 Search Date: 12/14/2018 12:41:39 PM The Drug Utilization Report below displays all of the controlled substance prescriptions, if any, that your patient has filled in the last twelve months. The information displayed on this report is compiled from pharmacy submissions to the Department, and accurately reflects the information as submitted by the pharmacies. This report was requested by: Rebecca Szymanski | Reference #: [id number] There are no results for the search terms that you entered. Exam Limitations: Clinical Condition - Ebola screening Have you traveled outside of the country in the last 21 days: No (N) Have you had contact with anyone from an Ebola affected area: No Do you have a fever: No - Review of Systems Constitutional: See HPI EENT: reports: Other (missing teeth) Respiratory: reports: See HPI Cardiac: reports: No Symptoms Reported GI: reports: Constipated : reports: No Symptoms Reported Musculoskeletal: reports: Back Pain (chronic LBP) Integumentary: reports: No Symptoms Reported Neuro: reports: Headache, Seizure Endocrine: reports: No Symptoms Reported Psychiatric: reports: Orientated x3, Agitated, Anxious, Depressed Patient History - Patient Medical History Hx Anemia: No Hx Asthma: Yes (Pt is on MDI) Hx Chronic Obstructive Pulmonary Disease (COPD): No Hx Cancer: No Hx Cardiac Disorders: No Hx Congestive Heart Failure: No Hx Hypertension: No Hx Hypercholesterolemia: No Hx Pacemaker: No HX Cerebrovascular Accident: No Hx Seizures: Yes (xanax related last in 2016) Hx Dementia: No Hx Diabetes: No Hx Gastrointestinal Disorders: No Hx Liver Disease: No Hx Genitourinary Disorders: No Hx Sexually Transmitted Disorders: No Hx Renal Disease (ESRD): No Hx Thyroid Disease: No Hx Human Immunodeficiency Virus (HIV): No (06/01 last tested;NEGATIVE HX) Hx Hepatitis C: No Hx Depression: Yes (no meds >1yr) Hx Suicide Attempt: No Hx Bipolar Disorder: Yes (no meds >1 yr) Hx Schizophrenia: No - Patient Surgical History Past Surgical History: Yes Hx Neurologic Surgery: No Hx Cataract Extraction: No Hx Cardiac Surgery: No Hx Lung Surgery: No Hx Breast Surgery: No Hx Breast Biopsy: No Hx Abdominal Surgery: No Hx Appendectomy: No Hx Cholecystectomy: No Hx Genitourinary Surgery: Yes (removal of ovarian cyst in ) Hx Section: No Hx Orthopedic Surgery: No Hx Hysterectomy: No Other Surgical History: tonsillectomy at age 8;D&C 03/2017 Anesthesia Reaction: No - PPD History Date: 06/18/18 Results: 0 mm - Reproductive History Last Menstrual Period: 05/21/18 - Smoking Cessation Smoking history: Current every day smoker Have you smoked in the past 12 months: Yes Aproximately how many cigarettes per day: 20 Cigars Per Day: 0 Hx Chewing Tobacco Use: No Initiated information on smoking cessation: No - Substances abused Alprazolam (Xanax) Substance route: Oral Frequency: Daily Amount used: 5 STICKS DAILY (2MG) Age of first use: 26 Date of last use: 12/13/18 Benzodiazepine (Klonopin) Substance route: Oral Frequency: 1-2 times per week Amount used: 6 MG WHEN USED Age of first use: 26 Date of last use: 12/10/18 Other Other (specify): ATIVAN Substance route: Oral Frequency: 1-3 times last 30 days Amount used: 10 MG Age of first use: 32 Date of last use: 12/04/18 Family Disease History - Family Disease History Family Disease History: CA: Mother (alcohol -17 yrs sober, cervical CA , RA ) , Other: Father (alcohol 17 years sober , PSA, Hep C IVDU heroin), Mother, Brother (1, overweight, reading disability , emphysema ), Sister (anemia thalassemia , IBS , ), Son (A & W ) Admission Physical Exam [facility] - Vital Signs Vital Signs: Vital Signs - 24 hr 12/14/18 10:57 Temperature 98.1 F Pulse Rate 91 H Respiratory 18 Rate Blood Pressure 115/79 - Physical General Appearance: Yes: Mild Distress, Anxious HEENTM: Yes: EOMI, Hearing grossly Normal, Normocephalic, Muffled/Hoarse Voice Respiratory: Yes: Chest Non-Tender, Lungs Clear, Normal Breath Sounds Neck: Yes: No masses,lesions,Nodules, Trachea in good position Cardiology: Yes: Regular Rhythm, Regular Rate, S1, S2, Tachycardia Abdominal: Yes: Non Tender, Soft Back: Yes: Normal Inspection Musculoskeletal: Yes: full range of Motion, Gait Steady Extremities: Yes: Normal Range of Motion, Non-Tender Neurological: Yes: Fully Oriented, Motor Strength 5/5 Integumentary: Yes: Warm - Diagnostic (1) Opioid dependence on agonist therapy Current Visit: Yes Status: Chronic (2) Sedative, hypnotic or anxiolytic dependence with withdrawal, uncomplicated Current Visit: Yes Status: Acute (3) Cannabis dependence, uncomplicated Current Visit: Yes Status: Chronic (4) Nicotine dependence Current Visit: Yes Status: Chronic Qualifiers: Nicotine product type: cigarettes Breathalyzer - Breathalyzer Breathalyzer: 0 Urine Drug Screen - Test Device Lot number: [id number] Expiration date: 11/17/19 - Control Is test valid?: Yes - Results Drug screen NEGATIVE: No Urine drug screen results: THC-Marijuana, MTD-Methadone, BZO-Benzodiazepines Inpatient Rehab Admission - Rehab Decision to Admit Inpatient rehab admission?: No"
[2018-12-14] MEDS ORDERED: MAGNESIUM CITRATE 300 ML BOTTLE PO PRN (12:49)
[2018-12-14] MEDS ORDERED: ACETAMINOPHEN 325 MG TABLET (FP) PO PRN ×2 (12:49)
[2018-12-14] MEDS ORDERED: BISMUTH SUBSALICYLATE 524 MG/30 ML UD PO PRN (12:49)
[2018-12-14] MEDS ORDERED: MAGNESIUM HYDROX 2400MG/30ML ORAL SUSPENSION 30 ML CUP PO PRN (12:49)
[2018-12-14] MEDS ORDERED: IBUPROFEN 400 MG TABLET (FP) PO PRN (12:49)
[2018-12-14] MEDS ORDERED: MENTHOL/PHENOL 1 EACH UD MM PRN (12:49)
[2018-12-14] MEDS: METHOCARBAMOL 500 MG TABLET PO PRN ×2 (14:13→23:11)
[2018-12-14] MEDS: chlordiazePOXIDE HCL 25 MG CAPSULE PO PRN ×2 (14:19→20:28)
[2018-12-14] MEDS ORDERED: ALBUTEROL SO4 0.083% IH SOL 2.5 MG/3 ML VIAL.NEB. NEB PRN (14:57)
[2018-12-14] MEDS: chlordiazePOXIDE HCL 25 MG CAPSULE PO SCH ×2 (17:17→21:59)
[2018-12-14] MEDS: THIAMINE HCL 100 MG TABLET (FP) PO SCH (21:59)
[2018-12-14] MEDS: MELATONIN 5 MG TABLETS PO PRN (22:02)
[2018-12-14] MEDS: NICOTINE POLACRILEX 2 MG GUM BUC PRN (22:13)
[2018-12-15] MEDS: NICOTINE POLACRILEX 2 MG GUM BUC PRN ×4 (01:11→23:35)
[2018-12-15] MEDS: chlordiazePOXIDE HCL 25 MG CAPSULE PO PRN ×3 (01:11→19:56)
[2018-12-15] MEDS: chlordiazePOXIDE HCL 25 MG CAPSULE PO SCH ×4 (06:08→22:19)
[2018-12-15] MEDS ORDERED: METHADONE HCL 10 MG TABLET ONE (06:42)
[2018-12-15] MEDS ORDERED: METHADONE HCL 40 MG DISPERSABLE TABLET ONE (06:42)
[2018-12-15] MEDS ORDERED: METHADONE HCL 10 MG TABLET PO SCH (06:45)
[2018-12-15] MEDS: METHADONE 80 MG, METHADONE 20 MG PO SCH (06:50)
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
[2018-12-15 10:12] LABS: HEMATOCRIT 35.2 % (32.4-45.2); HEMOGLOBIN 11.5 GM/dL (10.7-15.3); MCH 28.7 pg (25.7-33.7); MCHC 32.8 g/dl (32.0-36.0); MEAN CELL VOLUME 87.5 fl (80-96); MEAN PLT VOLUME 8.1 fl (7.5-11.1); PLATELET COUNT 287 K/MM3 (134-434); RBC 4.03 M/mm3 (3.60-5.2); RDW 15.8 % (11.6-15.6); WHITE BLOOD COUNT 7.3 K/mm3 (4.0-10.0)
[2018-12-15] MEDS: PRENATAL VITAMINS W/ FOLIC ACID TABLET (FP) PO SCH (10:24)
[2018-12-15] MEDS: METHOCARBAMOL 500 MG TABLET PO PRN ×2 (10:26→22:18)
[2018-12-15 10:34] LABS: ALBUMIN 3.1 g/dl (3.4-5.0); BILIRUBIN,TOTAL 0.2 mg/dL (0.2-1); CALCIUM 8.4 mg/dL (8.5-10.1); CREATININE 0.9 mg/dL (0.55-1.3); TOT PROT 6.2 g/dl (6.4-8.2)
[2018-12-15] MEDS: cloNIDine HCL 0.1 MG TABLET PO PRN ×2 (10:50→19:56)
--- NOTE | 2018-12-15 12:18 | PN ---
[facility] CIWA - CIWA Score Nausea/Vomitin-Mild Nausea/No Vomiting Muscle Tremors: 3 Anxiety: 3 Agitation: 2 Paroxysmal Sweats: 1-Minimal Palms Moist Orientation: 2-Disoriented Date<2 days Tacttile Disturbances: 0-None Auditory Disturbances: 0-None Visual Disturbances: 0-None Headache: 1-Very Mild CIWA-Ar Total Score: 13 S Progress Note (SOAP) Subjective: REPORT DOING OK TODAY ANXIOUS ABOUT PSYCHOTROPIC MEDICATIONS SEEN BY PSYCHIATRIST METHADONE 100 MG VERIFIED Objective: 12/15/18 12:19 Vital Signs Temperature 98.6 F 12/15/18 10:58 Pulse Rate 78 12/15/18 10:58 Respiratory Rate 20 12/15/18 10:58 Blood Pressure 103/70 12/15/18 10:58 O2 Sat by Pulse Oximetry (%) Laboratory Last Values WBC 7.3 K/mm3 (4.0-10.0) 12/15/18 07:00 RBC 4.03 M/mm3 (3.60-5.2) 12/15/18 07:00 Hgb 11.5 GM/dL (10.7-15.3) 12/15/18 07:00 Hct 35.2 % (32.4-45.2) 12/15/18 07:00 MCV 87.5 fl (80-96) 12/15/18 07:00 MCH 28.7 pg (25.7-33.7) 12/15/18 07:00 MCHC 32.8 g/dl (32.0-36.0) 12/15/18 07:00 RDW 15.8 % (11.6-15.6) H 12/15/18 07:00 Plt Count 287 K/MM3 (134-434) 12/15/18 07:00 MPV 8.1 fl (7.5-11.1) 12/15/18 07:00 Sodium 139 mmol/L (136-145) 12/15/18 07:00 Potassium 4.0 mmol/L (3.5-5.1) 12/15/18 07:00 Chloride 105 mmol/L (98-107) 12/15/18 07:00 Carbon Dioxide 26 mmol/L (21-32) 12/15/18 07:00 Anion Gap 8 MMOL/L (8-16) 12/15/18 07:00 BUN 5 mg/dL (7-18) L 12/15/18 07:00 Creatinine 0.9 mg/dL (0.55-1.3) 12/15/18 07:00 Est GFR (CKD-EPI)AfAm 98.06 12/15/18 07:00 Est GFR (CKD-EPI)NonAf 84.60 12/15/18 07:00 Random Glucose 113 mg/dL (74-106) H 12/15/18 07:00 Calcium 8.4 mg/dL (8.5-10.1) L 12/15/18 07:00 Total Bilirubin 0.2 mg/dL (0.2-1) 12/15/18 07:00 AST 31 U/L (15-37) 12/15/18 07:00 ALT 34 U/L (13-61) 12/15/18 07:00 Alkaline Phosphatase 90 U/L (45-117) 12/15/18 07:00 Total Protein 6.2 g/dl (6.4-8.2) L 12/15/18 07:00 Albumin 3.1 g/dl (3.4-5.0) L 12/15/18 07:00 POC Urine HCG, Qual Negative 12/14/18 11:48 LAB NOTED Assessment: 12/15/18 12:19 ALCOHOL AND BENZO WITHDRAWAL SX Plan: CONTINUE DETOX
[2018-12-15] MEDS: FLUoxetine HCL 20 MG CAPSULE (FP) PO SCH (12:49)
[2018-12-15] MEDS: MIRTAZAPINE 15 MG TABLET (FP) PO SCH (22:19)
[2018-12-15] MEDS: THIAMINE HCL 100 MG TABLET (FP) PO SCH (22:19)
[2018-12-16] MEDS ORDERED: METHADONE HCL 40 MG DISPERSABLE TABLET ONE (03:53)
[2018-12-16] MEDS ORDERED: METHADONE HCL 10 MG TABLET ONE (03:53)
[2018-12-16] MEDS: chlordiazePOXIDE HCL 25 MG CAPSULE PO PRN ×2 (03:54→15:04)
[2018-12-16] MEDS: METHADONE 80 MG, METHADONE 20 MG PO SCH (05:20)
[2018-12-16] MEDS: METHOCARBAMOL 500 MG TABLET PO PRN ×2 (05:20→19:57)
[2018-12-16] MEDS: chlordiazePOXIDE HCL 25 MG CAPSULE PO SCH ×2 (06:30→10:23)
[2018-12-16] MEDS: cloNIDine HCL 0.1 MG TABLET PO PRN ×2 (09:20→19:57)
[2018-12-16] MEDS: FLUoxetine HCL 20 MG CAPSULE (FP) PO SCH (10:23)
[2018-12-16] MEDS: PRENATAL VITAMINS W/ FOLIC ACID TABLET (FP) PO SCH (10:23)
--- NOTE | 2018-12-16 14:26 | PN ---
[facility] CIWA - CIWA Score Nausea/Vomitin-Mild Nausea/No Vomiting Muscle Tremors: 3 Anxiety: 3 Agitation: 3 Paroxysmal Sweats: 1-Minimal Palms Moist Orientation: 1-Uncertain about Date Tacttile Disturbances: 0-None Auditory Disturbances: 0-None Visual Disturbances: 0-None Headache: 0-None Present CIWA-Ar Total Score: 12 [facility] Progress Note (SOAP) Subjective: doing ok with librium protocol encourage the patient to return to methadone maintenance program for medical and mental issues Objective: 12/16/18 14:28 Vital Signs Temperature 96.6 F L 12/16/18 13:23 Pulse Rate 57 L 12/16/18 13:23 Respiratory Rate 18 12/16/18 13:23 Blood Pressure 94/65 12/16/18 13:23 O2 Sat by Pulse Oximetry (%) Laboratory Last Values WBC 7.3 K/mm3 (4.0-10.0) 12/15/18 07:00 RBC 4.03 M/mm3 (3.60-5.2) 12/15/18 07:00 Hgb 11.5 GM/dL (10.7-15.3) 12/15/18 07:00 Hct 35.2 % (32.4-45.2) 12/15/18 07:00 MCV 87.5 fl (80-96) 12/15/18 07:00 MCH 28.7 pg (25.7-33.7) 12/15/18 07:00 MCHC 32.8 g/dl (32.0-36.0) 12/15/18 07:00 RDW 15.8 % (11.6-15.6) H 12/15/18 07:00 Plt Count 287 K/MM3 (134-434) 12/15/18 07:00 MPV 8.1 fl (7.5-11.1) 12/15/18 07:00 Sodium 139 mmol/L (136-145) 12/15/18 07:00 Potassium 4.0 mmol/L (3.5-5.1) 12/15/18 07:00 Chloride 105 mmol/L (98-107) 12/15/18 07:00 Carbon Dioxide 26 mmol/L (21-32) 12/15/18 07:00 Anion Gap 8 MMOL/L (8-16) 12/15/18 07:00 BUN 5 mg/dL (7-18) L 12/15/18 07:00 Creatinine 0.9 mg/dL (0.55-1.3) 12/15/18 07:00 Est GFR (CKD-EPI)AfAm 98.06 12/15/18 07:00 Est GFR (CKD-EPI)NonAf 84.60 12/15/18 07:00 Random Glucose 113 mg/dL (74-106) H 12/15/18 07:00 Calcium 8.4 mg/dL (8.5-10.1) L 12/15/18 07:00 Total Bilirubin 0.2 mg/dL (0.2-1) 12/15/18 07:00 AST 31 U/L (15-37) 12/15/18 07:00 ALT 34 U/L (13-61) 12/15/18 07:00 Alkaline Phosphatase 90 U/L (45-117) 12/15/18 07:00 Total Protein 6.2 g/dl (6.4-8.2) L 12/15/18 07:00 Albumin 3.1 g/dl (3.4-5.0) L 12/15/18 07:00 POC Urine HCG, Qual Negative 12/14/18 11:48 RPR Titer Nonreactive (NONREACTIVE) 12/15/18 07:00 HIV 1&2 Antibody Screen Negative 12/15/18 07:00 HIV P24 Antigen Negative 12/15/18 07:00 lab noted Assessment: 12/16/18 14:28 alcohol and benzo withdrawal sx Plan: continue detox
[2018-12-16] MEDS ORDERED: chlordiazePOXIDE HCL 10 MG CAPSULE PO PRN (17:00)
[2018-12-16] MEDS: chlordiazePOXIDE HCL 10 MG CAPSULE PO SCH ×2 (17:07→22:08)
[2018-12-16] MEDS: hydrOXYzine PAMOATE 25 MG CAPSULE (FP) PO PRN (19:57)
[2018-12-16] MEDS: MIRTAZAPINE 15 MG TABLET (FP) PO SCH (22:08)
[2018-12-16] MEDS: THIAMINE HCL 100 MG TABLET (FP) PO SCH (22:08)
[2018-12-16] MEDS: MELATONIN 5 MG TABLETS PO PRN (22:09)
[2018-12-16] MEDS: MAG HYDROX/AL HYDROX/SIMETH 30 ML UNIT-DOSE CUP PO PRN (22:35)
[2018-12-17] MEDS ORDERED: METHADONE HCL 40 MG DISPERSABLE TABLET ONE (04:39)
[2018-12-17] MEDS ORDERED: METHADONE HCL 10 MG TABLET ONE (04:39)
[2018-12-17] MEDS: METHADONE 80 MG, METHADONE 20 MG PO SCH (06:39)
[2018-12-17] MEDS: chlordiazePOXIDE HCL 10 MG CAPSULE PO SCH ×3 (06:39→17:34)
[2018-12-17] MEDS: FLUoxetine HCL 20 MG CAPSULE (FP) PO SCH (10:35)
[2018-12-17] MEDS: PRENATAL VITAMINS W/ FOLIC ACID TABLET (FP) PO SCH (10:35)
[2018-12-17] MEDS: cloNIDine HCL 0.1 MG TABLET PO PRN ×2 (10:44→18:00)
[2018-12-17] MEDS: METHOCARBAMOL 500 MG TABLET PO PRN (10:44)
--- NOTE | 2018-12-17 16:52 | PN ---
[facility] CIWA - CIWA Score Nausea/Vomitin-No Nausea/No Vomiting Muscle Tremors: None Anxiety: 3 Agitation: 2 Paroxysmal Sweats: No Perspiration Orientation: 0-Oriented Tacttile Disturbances: 1-Very Mild Itch/Numbness Auditory Disturbances: 1-Very Mild Visual Disturbances: 1-Very Mild Sensitivity Headache: 0-None Present CIWA-Ar Total Score: 8 [facility] Progress Note (SOAP) Subjective: Stomach Cramping, Nasal Congestion, Anxious. Objective: PATIENT PATIENT A & O X 3, OBSERVED AMBULATING ON UNIT UNASSISTED. IN NO ACUTE DISTRESS. 12/17/18 16:50 Vital Signs Temperature 97.0 F L 12/17/18 09:46 Pulse Rate 67 12/17/18 09:46 Respiratory Rate 18 12/17/18 09:46 Blood Pressure 90/60 12/17/18 09:46 O2 Sat by Pulse Oximetry (%) Laboratory Tests 12/14/18 12/15/18 12/15/18 11:48 07:00 07:00 WBC 7.3 RBC 4.03 Hgb 11.5 Hct 35.2 MCV 87.5 MCH 28.7 MCHC 32.8 RDW 15.8 H Plt Count 287 MPV 8.1 Sodium 139 Potassium 4.0 Chloride 105 Carbon Dioxide 26 Anion Gap 8 BUN 5 L Creatinine 0.9 Est GFR (CKD-EPI)AfAm 98.06 Est GFR (CKD-EPI)NonAf 84.60 Random Glucose 113 H Calcium 8.4 L Total Bilirubin 0.2 AST 31 ALT 34 Alkaline Phosphatase 90 Total Protein 6.2 L Albumin 3.1 L POC Urine HCG, Qual Negative RPR Titer HIV 1&2 Antibody Screen HIV P24 Antigen 12/15/18 12/15/18 07:00 07:00 WBC RBC Hgb Hct MCV MCH MCHC RDW Plt Count MPV Sodium Potassium Chloride Carbon Dioxide Anion Gap BUN Creatinine Est GFR (CKD-EPI)AfAm Est GFR (CKD-EPI)NonAf Random Glucose Calcium Total Bilirubin AST ALT Alkaline Phosphatase Total Protein Albumin POC Urine HCG, Qual RPR Titer Nonreactive HIV 1&2 Antibody Screen Negative HIV P24 Antigen Negative LABS NOTED. Assessment: 12/17/18 16:51 WITHDRAWAL SYMPTOMS. Plan: CONTINUE DETOX. INCREASE DAILY PO FLUID / WATER INTAKE. PATIENT SCHEDULED FOR D/C TOMORROW.
[2018-12-17] MEDS: SODIUM CHLORIDE NASAL SPRAY 44 ML BOTTLE NS PRN ×2 (17:33→22:16)
[2018-12-17] MEDS: MIRTAZAPINE 15 MG TABLET (FP) PO SCH (22:17)
[2018-12-17] MEDS: hydrOXYzine PAMOATE 25 MG CAPSULE (FP) PO PRN (22:17)
[2018-12-17] MEDS: THIAMINE HCL 100 MG TABLET (FP) PO SCH (22:17)
[2018-12-18] MEDS: METHOCARBAMOL 500 MG TABLET PO PRN ×2 (00:45→08:01)
[2018-12-18] MEDS: MELATONIN 5 MG TABLETS PO PRN (00:45)
[2018-12-18] MEDS ORDERED: METHADONE HCL 10 MG TABLET ONE ×2 (05:11→07:42)
[2018-12-18] MEDS ORDERED: METHADONE HCL 40 MG DISPERSABLE TABLET ONE ×2 (05:11→07:42)
[2018-12-18] MEDS: MAG HYDROX/AL HYDROX/SIMETH 30 ML UNIT-DOSE CUP PO PRN ×2 (05:36→08:30)
[2018-12-18] MEDS ORDERED: ONDANSETRON *ODT* 4 MG TABLET SL PRN (05:41)
[2018-12-18] MEDS: chlordiazePOXIDE HCL 10 MG CAPSULE PO SCH (06:38)
[2018-12-18 07:41] VITALS: BP 100/58; PULSE 89; TEMP 97.9
[2018-12-18] MEDS: METHADONE 80 MG, METHADONE 20 MG PO SCH (07:43)
[2018-12-18] MEDS: hydrOXYzine PAMOATE 25 MG CAPSULE (FP) PO PRN (08:01)
[2018-12-18] MEDS: NICOTINE POLACRILEX 2 MG GUM BUC PRN (08:02)
--- NOTE | 2018-12-18 17:32 | DS ---
[facility] Detox Discharge Summary Admission Date: 12/14/18 Discharge Date: 12/18/18 - History Present History: Cannabis Dependence, Opioid Dependence, Sedative Dependence Additional Comments: PATIENT RETURNING HOME AND TO [facility] ( [place], [place]) AND [facility] ([place], [place]) FOR AFTERCARE. PATIENT WAS DISCHARGED FROM DETOX UNIT IN STABLE MEDICAL CONDITION. Pertinent Past History: Nicotine Dependence, Asthma, History Of Ovarian Cysts, History of Malformation of Fetus, Depressive Disorder, Bipolar Disorder, Mood Disorder, Anxiety, History Of Seizures (Due to Benzodiazepine Withdrawal), M.M.T.P. - Physical Exam Results Vital Signs: Vital Signs Temperature 97.9 F 12/18/18 07:40 Pulse Rate 89 12/18/18 07:40 Respiratory Rate 18 12/18/18 07:40 Blood Pressure 100/58 L 12/18/18 07:40 O2 Sat by Pulse Oximetry (%) Pertinent Admission Physical Exam Findings: WITHDRAWAL SYMPTOMS. Laboratory Tests 12/14/18 12/15/18 12/15/18 11:48 07:00 07:00 WBC 7.3 RBC 4.03 Hgb 11.5 Hct 35.2 MCV 87.5 MCH 28.7 MCHC 32.8 RDW 15.8 H Plt Count 287 MPV 8.1 Sodium 139 Potassium 4.0 Chloride 105 Carbon Dioxide 26 Anion Gap 8 BUN 5 L Creatinine 0.9 Est GFR (CKD-EPI)AfAm 98.06 Est GFR (CKD-EPI)NonAf 84.60 Random Glucose 113 H Calcium 8.4 L Total Bilirubin 0.2 AST 31 ALT 34 Alkaline Phosphatase 90 Total Protein 6.2 L Albumin 3.1 L POC Urine HCG, Qual Negative RPR Titer HIV 1&2 Antibody Screen HIV P24 Antigen 12/15/18 12/15/18 07:00 07:00 WBC RBC Hgb Hct MCV MCH MCHC RDW Plt Count MPV Sodium Potassium Chloride Carbon Dioxide Anion Gap BUN Creatinine Est GFR (CKD-EPI)AfAm Est GFR (CKD-EPI)NonAf Random Glucose Calcium Total Bilirubin AST ALT Alkaline Phosphatase Total Protein Albumin POC Urine HCG, Qual RPR Titer Nonreactive HIV 1&2 Antibody Screen Negative HIV P24 Antigen Negative LABS NOTED. - Treatment Hospital Course: Detox Protocol Followed, Detoxed Safely, Responded well, Discharged Condition Good Patient has Accepted a Rehab Referral to: PT. RETURNING TO [facility] AND TO [facility]. - Medication Discharge Medications: Ambulatory Orders Albuterol Sulfate Inhaler - [Ventolin HFA Inhaler -] 2 inh PO Q4H PRN #1 inhaler 01/21/18 Fluoxetine HCl [Prozac] 20 mg PO DAILY #14 capsule 12/08/18 Mirtazapine 7.5 mg PO HS #14 tablet 12/08/18 - Diagnosis (1) Sedative, hypnotic or anxiolytic dependence with withdrawal, uncomplicated Status: Acute (2) Substance-induced sleep disorder Status: Acute (3) Cannabis dependence, uncomplicated Status: Chronic (4) Depressive disorder Status: Chronic (5) Nicotine dependence Status: Chronic Qualifiers: Nicotine product type: cigarettes Substance use status: uncomplicated Qualified Code(s): F17.210 - Nicotine dependence, cigarettes, uncomplicated (6) Opioid dependence on agonist therapy Status: Chronic (7) Opioid dependence Status: Chronic - AMA Did Patient Leave Against Medical Advice: No
== END 2018-12-18 08:36 | disposition home or self-care (01) | DRG 773 ==
LOC: YASAS 10:17 → Y3N 13:29
PROVIDERS: ADMIT Surgery; ATTEND Surgery
PROC: HZ2ZZZZ Detoxification Services for Substance Abuse Treatment (ICD-10-PCS; principal; 2018-12-14)
DX: F10.230 Alcohol dependence with withdrawal, uncomplicated (principal); F13.230 Sedative, hypnotic or anxiolytic dependence with withdrawal, uncomplicated; F11.20 Opioid dependence, uncomplicated; F12.20 Cannabis dependence, uncomplicated; F17.210 Nicotine dependence, cigarettes, uncomplicated; F19.282 Other psychoactive substance dependence with psychoactive substance-induced sleep disorder; F31.9 Bipolar disorder, unspecified; F39 Unspecified mood [affective] disorder; F41.9 Anxiety disorder, unspecified; Z86.69 Personal history of other diseases of the nervous system and sense organs; Z87.09 Personal history of other diseases of the respiratory system
CPT/HCPCS: 36415; 80053; 81025; 85027; 86593; 87389; J0735; Q0162

== ENCOUNTER 2024-01-25 16:13 | Inpatient (IN) | payer OTHER ==
[2024-01-25 17:02] VITALS: BMI 26.8
[2024-01-25] MEDS ORDERED: BISMUTH SUBSALICYLATE 524 MG/30 ML PO PRN (17:46)
[2024-01-25] MEDS ORDERED: P-EPHED 60MG/TRIPROLIDI 2.5MG TABLET PO PRN (17:46)
[2024-01-25] MEDS ORDERED: NALOXONE (NARCAN) HCL 4 MG/0.1 ML SPRAY NS PRN (17:46)
[2024-01-25] MEDS ORDERED: BENZOCAINE/MENTHOL (CHLORASEPTIC ) LOZENGE MM PRN (17:46)
[2024-01-25] MEDS ORDERED: guaiFENesin 600 MG TABLET.ER (FP) PO PRN (17:46)
[2024-01-25] MEDS ORDERED: LOPERAMIDE HCL 2 MG CAPSULE PO PRN (17:46)
[2024-01-25] MEDS ORDERED: ONDANSETRON *ODT* 4 MG TABLET SL PRN (17:46)
[2024-01-25] MEDS ORDERED: BENZONATATE 200 MG CAPSULE PO PRN (17:46)
[2024-01-25] MEDS ORDERED: NICOTINE POLACRILEX 2 MG LOZENGE BC PRN (17:46)
[2024-01-25] MEDS ORDERED: DICYCLOMINE HCL 10 MG CAPSULE PO PRN (17:46)
[2024-01-25] MEDS ORDERED: MAG HYDROX/AL HYDROX/SIMETH 30 ML UNIT-DOSE CUP PO PRN (17:46)
[2024-01-25] MEDS ORDERED: NALOXONE HCL 0.4 MG/ML VIAL IM PRN (17:46)
[2024-01-25] MEDS ORDERED: levETIRAcetam 500 MG TABLET (FP) PO ONE (18:20)
[2024-01-25] MEDS: levETIRAcetam 500 MG TABLET (FP) PO ONE (18:23)
[2024-01-25] MEDS: MELATONIN 5 MG TABLETS PO SCH (21:38)
[2024-01-25] MEDS: THIAMINE 100 MG TABLET PO SCH (21:38)
[2024-01-25] MEDS: METHOCARBAMOL 500 MG TABLET PO PRN (21:38)
[2024-01-25] MEDS: levETIRAcetam 500 MG TABLET (FP) PO SCH (21:39)
[2024-01-25] MEDS: hydrOXYzine PAMOATE 25 MG CAPSULE (FP) PO PRN (21:40)
[2024-01-25] MEDS: NICOTINE POLACRILEX 2 MG GUM BUC PRN (22:00)
[2024-01-26] MEDS: IBUPROFEN 400 MG TABLET (FP) PO PRN (05:50)
[2024-01-26] MEDS ORDERED: ALBUTEROL SO4 HFA INHALER IH PRN (07:11)
[2024-01-26] MEDS ORDERED: methaDONE HCL 10 MG TABLET PO SCH (08:30)
[2024-01-26] MEDS: PRENATAL VITAMINS W/ FOLIC ACID TABLET (FP) PO SCH (09:13)
[2024-01-26] MEDS: NICOTINE 7 MG/24 HOURS TOPICAL PATCH TD SCH (09:14)
[2024-01-26] MEDS ORDERED: ESCITALOPRAM OXALATE 10 MG TABLET ONE (09:18)
[2024-01-26] MEDS: ESCITALOPRAM OXALATE 20 MG TABLET PO SCH (09:20)
[2024-01-26] MEDS: cloNIDine HCL 0.1 MG TABLET PO SCH ×2 (09:22→21:56)
[2024-01-26] MEDS: methaDONE HCL 10 MG TABLET PO ONE (09:26)
[2024-01-26] MEDS: clonazePAM 0.5 MG ODT TABLETS SL SCH (09:32)
[2024-01-26] MEDS: methaDONE 80 MG, methaDONE 10 MG PO SCH (09:47)
[2024-01-26] MEDS: methaDONE 80 MG, methaDONE 10 MG PO ONE (09:47)
[2024-01-26] MEDS: IBUPROFEN 600 MG TABLET (FP) PO PRN (23:39)
[2024-01-27] MEDS ORDERED: ESCITALOPRAM OXALATE 10 MG TABLET ONE (09:13)
[2024-01-27] MEDS: methaDONE HCL 10 MG TABLET PO ONE (09:24)
[2024-01-27] MEDS ORDERED: clonazePAM 1 MG ODT TABLETS SL SCH (15:15)
[2024-01-27] MEDS: clonazePAM 1 MG ODT TABLETS SL SCH ×2 (15:58→22:10)
[2024-01-28] MEDS ORDERED: cloNIDine HCL 0.1 MG TABLET PO PRN
[2024-01-28] MEDS ORDERED: ESCITALOPRAM OXALATE 10 MG TABLET ONE (09:17)
[2024-01-28] MEDS: methaDONE HCL 10 MG TABLET PO ONE (09:36)
[2024-01-28] MEDS: LIDOCAINE 5% TOPICAL PATCH TP SCH (13:17)
[2024-01-28] MEDS: LIDOCAINE PATCH REMOVAL MC SCH (22:26)
[2024-01-29] MEDS ORDERED: ESCITALOPRAM OXALATE 10 MG TABLET ONE (10:18)
[2024-01-29] MEDS: methaDONE HCL 10 MG TABLET PO ONE (10:26)
[2024-01-29] MEDS: POLYETHYLENE GLYCOL (HEALTHYLAX) 3350 17 GM PACKET PO PRN (14:50)
[2024-01-30] MEDS ORDERED: ESCITALOPRAM OXALATE 10 MG TABLET ONE (09:34)
[2024-01-30] MEDS: methaDONE HCL 10 MG TABLET PO ONE (12:01)
[2024-01-30] MEDS: methaDONE HCL 40 MG DISPERSABLE TABLET PO SCH (12:06)
[2024-01-30] MEDS: MAGNESIUM HYDROX 2400MG/30ML ORAL SUSPENSION 30 ML CUP PO PRN (16:39)
[2024-01-30] MEDS: ACETAMINOPHEN 325 MG TABLET (FP) PO PRN (20:13)
[2024-01-31 06:25] VITALS: RESP 16
[2024-01-31] MEDS ORDERED: ESCITALOPRAM OXALATE 10 MG TABLET ONE (09:20)
[2024-01-31] MEDS: methaDONE HCL 40 MG DISPERSABLE TABLET PO SCH (09:24)
[2024-02-01] MEDS ORDERED: ESCITALOPRAM OXALATE 10 MG TABLET ONE (09:17)
[2024-02-01 14:04] VITALS: BP 108/80; PULSE 70; TEMP 97.6
== END 2024-02-01 15:51 | disposition other institution (70) | DRG 773 ==
LOC: YASAS 16:13 → Y6N 18:08
PROVIDERS: ADMIT Allergy & Immunology; ATTEND Surgery
PROC: HZ2ZZZZ Detoxification Services for Substance Abuse Treatment (ICD-10-PCS; principal; 2024-01-25)
DX: F10.230 Alcohol dependence with withdrawal, uncomplicated (principal); F11.20 Opioid dependence, uncomplicated; F13.20 Sedative, hypnotic or anxiolytic dependence, uncomplicated; F14.20 Cocaine dependence, uncomplicated; F15.10 Other stimulant abuse, uncomplicated; F16.10 Hallucinogen abuse, uncomplicated; F19.282 Other psychoactive substance dependence with psychoactive substance-induced sleep disorder; F19.280 Other psychoactive substance dependence with psychoactive substance-induced anxiety disorder; F41.8 Other specified anxiety disorders; G40.909 Epilepsy, unspecified, not intractable, without status epilepticus; K59.09 Other constipation; E87.6 Hypokalemia; J45.20 Mild intermittent asthma, uncomplicated
CPT/HCPCS: 36415; 80053; 80305; 80307; 81003; 81025; 84702; 84703; 85025; 87811; 93005; 93010; 99282-25

== ENCOUNTER 2024-02-01 16:09 | Inpatient (IN) | payer OTHER ==
[2024-02-01] MEDS ORDERED: LOPERAMIDE HCL 2 MG CAPSULE PO PRN (17:15)
[2024-02-01] MEDS ORDERED: BENZONATATE 200 MG CAPSULE PO PRN (17:15)
[2024-02-01] MEDS ORDERED: MAGNESIUM HYDROX 2400MG/30ML ORAL SUSPENSION 30 ML CUP PO PRN (17:15)
[2024-02-01] MEDS ORDERED: POLYETHYLENE GLYCOL (HEALTHYLAX) 3350 17 GM PACKET PO PRN (17:15)
[2024-02-01] MEDS ORDERED: MAG HYDROX/AL HYDROX/SIMETH 30 ML UNIT-DOSE CUP PO PRN (17:15)
[2024-02-01] MEDS ORDERED: guaiFENesin 600 MG TABLET.ER (FP) PO PRN (17:15)
[2024-02-01] MEDS ORDERED: ALBUTEROL SO4 HFA INHALER IH PRN (17:16)
[2024-02-01] MEDS: MELATONIN 5 MG TABLETS PO SCH (22:08)
[2024-02-01] MEDS: THIAMINE 100 MG TABLET PO SCH (22:09)
[2024-02-01] MEDS: LIDOCAINE PATCH REMOVAL MC SCH (22:09)
[2024-02-01] MEDS: levETIRAcetam 500 MG TABLET (FP) PO SCH (22:10)
[2024-02-01] MEDS: IBUPROFEN 600 MG TABLET (FP) PO PRN (22:10)
[2024-02-01] MEDS: METHOCARBAMOL 500 MG TABLET PO PRN (23:15)
[2024-02-02] MEDS: clonazePAM 1 MG ODT TABLETS SL ONE ×2 (00:37→14:12)
[2024-02-02] MEDS: ACETAMINOPHEN 325 MG TABLET (FP) PO PRN (07:56)
[2024-02-02] MEDS: methaDONE HCL 40 MG DISPERSABLE TABLET PO SCH (10:23)
[2024-02-02] MEDS: LIDOCAINE 5% TOPICAL PATCH TP SCH (10:24)
[2024-02-02] MEDS: PRENATAL VITAMINS W/ FOLIC ACID TABLET (FP) PO SCH (10:25)
[2024-02-02] MEDS: ESCITALOPRAM OXALATE 20 MG TABLET PO SCH (10:25)
[2024-02-02] MEDS: clonazePAM 1 MG ODT TABLETS SL SCH ×2 (10:30→21:18)
[2024-02-02] MEDS: NICOTINE POLACRILEX 2 MG LOZENGE BC PRN (13:10)
[2024-02-03] MEDS: NICOTINE POLACRILEX 2 MG GUM BUC PRN (11:15)
[2024-02-03] MEDS ORDERED: methaDONE HCL 40 MG DISPERSABLE TABLET PO SCH (16:33)
[2024-02-03] MEDS: IBUPROFEN 400 MG TABLET (FP) PO PRN (17:09)
[2024-02-04] MEDS: BENZOCAINE/MENTHOL (CHLORASEPTIC ) LOZENGE MM PRN (10:33)
[2024-02-04 16:11] LABS: POTASSIUM 4.8 mmol/L (3.5-5.1)
[2024-02-04 16:16] LABS: CALCIUM 9.2 mg/dL (8.5-10.1)
[2024-02-04 16:17] LABS: ALBUMIN 3.6 g/dl (3.4-5.0); BLOOD UREA NITROGEN 13.5 mg/dL (7-18); MAGNESIUM 2.3 mg/dL (1.8-2.4)
[2024-02-04 16:17] LABS: BASO % 0.5 % (0-2.0); EOS % 4.2 % (0-4.5); HEMATOCRIT 35.9 % (32.4-45.2); LYMPH % 14.6 % (8-40); MCH 28.6 pg (25.7-33.7); MCHC 33.4 g/dl (32.0-36.0); MEAN CELL VOLUME 85.6 fl (80-96); MEAN PLT VOLUME 8.8 fl (7.5-11.1); NEUT % 74.7 % (42.8-82.8); PLATELET COUNT 224 10^3/uL (134-434); RBC 4.19 M/mm3 (3.60-5.2); RDW 14.6 % (11.6-15.6); WHITE BLOOD COUNT 7.3 K/mm3 (4.0-10.0)
[2024-02-04 16:21] LABS: BILIRUBIN,TOTAL 0.3 mg/dL (0.2-1); TOT PROT 6.5 g/dl (6.4-8.2)
[2024-02-05] MEDS ORDERED: SODIUM CHLORIDE NASAL SPRAY 44 ML BOTTLE NS PRN (10:32)
[2024-02-05] MEDS: CARBAMIDE PEROXIDE 6.5% OTIC 15 ML BOTTLE AU SCH (21:26)
[2024-02-06] MEDS: NICOTINE 7 MG/24 HOURS TOPICAL PATCH TD SCH (10:04)
[2024-02-08] MEDS ORDERED: methaDONE HCL 40 MG DISPERSABLE TABLET PO SCH (10:21)
[2024-02-08] MEDS: hydrOXYzine PAMOATE 25 MG CAPSULE (FP) PO ONE (17:40)
[2024-02-09] MEDS: methaDONE 80 MG, methaDONE 20 MG PO SCH (05:40)
[2024-02-10] MEDS ORDERED: methaDONE HCL 40 MG DISPERSABLE TABLET PO SCH (15:03)
[2024-02-11] MEDS: methaDONE 80 MG, methaDONE 10 MG PO SCH (06:09)
[2024-02-14] MEDS: DOCUSATE SODIUM 100 MG CAPSULE (FP) PO PRN (10:05)
[2024-02-15] MEDS ORDERED: busPIRone HCL 10 MG TABLET (FP) PO PRN (10:15)
[2024-02-15] MEDS: busPIRone HCL 10 MG TABLET (FP) PO PRN (17:36)
[2024-02-16 07:07] VITALS: RESP 18; TEMP 97.7
[2024-02-16 09:25] VITALS: BP 105/65; PULSE 88
== END 2024-02-17 00:30 | disposition left against medical advice (07) | DRG 770 ==
LOC: YASAS 16:09 → Y5N 16:13
PROVIDERS: ADMIT Allergy & Immunology; ATTEND Psychiatry & Neurology Pain Medicine
PROC: HZ42ZZZ Group Counseling for Substance Abuse Treatment, Cognitive-Behavioral (ICD-10-PCS; principal; 2024-02-01)
DX: F11.20 Opioid dependence, uncomplicated (principal); F13.20 Sedative, hypnotic or anxiolytic dependence, uncomplicated; F14.20 Cocaine dependence, uncomplicated; F16.20 Hallucinogen dependence, uncomplicated; F12.20 Cannabis dependence, uncomplicated; F10.20 Alcohol dependence, uncomplicated; F17.210 Nicotine dependence, cigarettes, uncomplicated; F41.9 Anxiety disorder, unspecified; F32.A Depression, unspecified; F19.24 Other psychoactive substance dependence with psychoactive substance-induced mood disorder; Z59.02 Unsheltered homelessness
CPT/HCPCS: 0241U-QW; 36415; 80053; 82652; 83735; 85025; 87070; 87651

== ENCOUNTER 2024-02-17 10:14 | Inpatient (IN) | payer OTHER ==
[2024-02-17] MEDS ORDERED: LOPERAMIDE HCL 2 MG CAPSULE PO PRN (10:18)
[2024-02-17] MEDS ORDERED: guaiFENesin 600 MG TABLET.ER (FP) PO PRN (10:18)
[2024-02-17] MEDS ORDERED: MAG HYDROX/AL HYDROX/SIMETH 30 ML UNIT-DOSE CUP PO PRN (10:18)
[2024-02-17] MEDS ORDERED: BENZOCAINE/MENTHOL (CHLORASEPTIC ) LOZENGE MM PRN (10:18)
[2024-02-17] MEDS ORDERED: POLYETHYLENE GLYCOL (HEALTHYLAX) 3350 17 GM PACKET PO PRN (10:18)
[2024-02-17] MEDS ORDERED: MAGNESIUM HYDROX 2400MG/30ML ORAL SUSPENSION 30 ML CUP PO PRN (10:18)
[2024-02-17] MEDS ORDERED: NALOXONE (NARCAN) HCL 4 MG/0.1 ML SPRAY NS PRN (10:18)
[2024-02-17] MEDS ORDERED: BENZONATATE 200 MG CAPSULE PO PRN (10:18)
[2024-02-17] MEDS ORDERED: IBUPROFEN 400 MG TABLET (FP) PO PRN (10:18)
[2024-02-17] MEDS ORDERED: NALOXONE HCL 0.4 MG/ML VIAL IM PRN (10:18)
[2024-02-17] MEDS ORDERED: ALBUTEROL SO4 HFA INHALER IH PRN (10:20)
[2024-02-17] MEDS ORDERED: busPIRone HCL 10 MG TABLET (FP) PO PRN (10:26)
[2024-02-17 11:01] VITALS: BMI 29.2
[2024-02-17] MEDS ORDERED: NICOTINE 14 MG/24 HOURS TOPICAL PATCH TD ONE (12:59)
[2024-02-17] MEDS ORDERED: PRENATAL VITAMINS W/ FOLIC ACID TABLET (FP) PO ONE (12:59)
[2024-02-17] MEDS: NICOTINE 14 MG/24 HOURS TOPICAL PATCH TD SCH ×2 (13:08→13:50)
[2024-02-17] MEDS: PRENATAL VITAMINS W/ FOLIC ACID TABLET (FP) PO SCH ×2 (13:08→13:51)
[2024-02-17] MEDS: ESCITALOPRAM OXALATE 20 MG TABLET PO SCH ×2 (13:08→13:50)
[2024-02-17] MEDS ORDERED: methaDONE HCL 10 MG TABLET PO ONE (13:43)
[2024-02-17] MEDS: methaDONE HCL 10 MG TABLET PO SCH (13:50)
[2024-02-17] MEDS: methaDONE 80 MG, methaDONE 10 MG PO ONE (14:00)
[2024-02-17] MEDS: LORazepam 2 MG TABLET PO PRN (14:26)
[2024-02-17] MEDS: ALPRAZolam 2 MG TABLET PO SCH (16:50)
[2024-02-17] MEDS: MELATONIN 5 MG TABLETS PO SCH (21:22)
[2024-02-17] MEDS: THIAMINE 100 MG TABLET PO SCH (21:23)
[2024-02-18] MEDS: IBUPROFEN 600 MG TABLET (FP) PO PRN (01:27)
[2024-02-18] MEDS ORDERED: methaDONE HCL 10 MG TABLET PO SCH (06:00)
[2024-02-18] MEDS: methaDONE 80 MG, methaDONE 10 MG PO SCH (06:11)
[2024-02-18] MEDS: hydrOXYzine PAMOATE 25 MG CAPSULE (FP) PO PRN (10:57)
[2024-02-18] MEDS: busPIRone HCL 10 MG TABLET (FP) PO PRN (17:31)
[2024-02-19] MEDS: LIDOCAINE 4% PATCH TP SCH (14:30)
[2024-02-19] MEDS: MELATONIN 5 MG TABLETS PO SCH (21:21)
[2024-02-19] MEDS: LIDOCAINE PATCH REMOVAL MC SCH (21:22)
[2024-02-19] MEDS: clonazePAM 1 MG ODT TABLETS SL SCH (21:24)
[2024-02-19] MEDS ORDERED: MIRTAZAPINE 15 MG TABLET (FP) PO SCH (22:00)
[2024-02-19] MEDS: ACETAMINOPHEN 325 MG TABLET (FP) PO PRN (23:12)
[2024-02-20] MEDS: clonazePAM 1 MG ODT TABLETS SL SCH (10:00)
[2024-02-20] MEDS: NICOTINE POLACRILEX 2 MG GUM BUC PRN (13:00)
[2024-02-20] MEDS: POLYMYXIN B SULFATE/TMP 10 ML OPHTHALMIC SOLUTION OU SCH (14:00)
[2024-02-22] MEDS: traZODone HCL 50 MG TABLET (FP) PO SCH (21:41)
[2024-03-02 07:16] VITALS: RESP 18; TEMP 97.9
[2024-03-02 09:35] VITALS: BP 118/71; PULSE 96
== END 2024-03-02 10:35 | disposition home or self-care (01) | DRG 772 ==
LOC: YASAS 10:14 → Y5N 13:14
PROVIDERS: ADMIT Allergy & Immunology; ATTEND Psychiatry & Neurology Pain Medicine
PROC: HZ42ZZZ Group Counseling for Substance Abuse Treatment, Cognitive-Behavioral (ICD-10-PCS; principal; 2024-02-17)
DX: F10.20 Alcohol dependence, uncomplicated (principal); F11.20 Opioid dependence, uncomplicated; F13.20 Sedative, hypnotic or anxiolytic dependence, uncomplicated; F16.20 Hallucinogen dependence, uncomplicated; F17.210 Nicotine dependence, cigarettes, uncomplicated; F19.980 Other psychoactive substance use, unspecified with psychoactive substance-induced anxiety disorder; J45.909 Unspecified asthma, uncomplicated; G47.00 Insomnia, unspecified; H10.31 Unspecified acute conjunctivitis, right eye; Z59.02 Unsheltered homelessness
CPT/HCPCS: 80305; 80307; 81025; 87811

== ENCOUNTER 2024-10-13 10:51 | Inpatient (IN) | payer OTHER ==
[2024-10-13] MEDS ORDERED: MAG HYDROX/AL HYDROX/SIMETH 30 ML UNIT-DOSE CUP PO PRN (11:51)
[2024-10-13] MEDS ORDERED: POLYETHYLENE GLYCOL (HEALTHYLAX) 3350 17 GM PACKET PO PRN (11:51)
[2024-10-13] MEDS ORDERED: DICYCLOMINE HCL 10 MG CAPSULE PO PRN (11:51)
[2024-10-13] MEDS ORDERED: LOPERAMIDE HCL 2 MG CAPSULE PO PRN (11:51)
[2024-10-13] MEDS ORDERED: BENZOCAINE/MENTHOL (CHLORASEPTIC ) LOZENGE MM PRN (11:51)
[2024-10-13] MEDS ORDERED: ACETAMINOPHEN 325 MG TABLET (FP) PO PRN (11:51)
[2024-10-13] MEDS ORDERED: ONDANSETRON *ODT* 4 MG TABLET SL PRN (11:51)
[2024-10-13] MEDS ORDERED: BENZONATATE 200 MG CAPSULE PO PRN (11:51)
[2024-10-13] MEDS ORDERED: IBUPROFEN 400 MG TABLET (FP) PO PRN (11:51)
[2024-10-13] MEDS ORDERED: NALOXONE (NARCAN) HCL 4 MG/0.1 ML SPRAY NS PRN (11:51)
[2024-10-13] MEDS ORDERED: MAGNESIUM HYDROX 2400MG/30ML ORAL SUSPENSION 30 ML CUP PO PRN (11:51)
[2024-10-13] MEDS ORDERED: BISMUTH SUBSALICYLATE 524 MG/30 ML PO PRN (11:51)
[2024-10-13] MEDS ORDERED: guaiFENesin 600 MG TABLET.ER (FP) PO PRN (11:51)
[2024-10-13] MEDS ORDERED: hydrOXYzine PAMOATE 25 MG CAPSULE (FP) PO PRN (11:51)
[2024-10-13] MEDS ORDERED: IBUPROFEN 600 MG TABLET (FP) PO PRN (11:51)
[2024-10-13 11:52] VITALS: BMI 19.3
[2024-10-13] MEDS ORDERED: ALBUTEROL SO4 HFA INHALER IH PRN (11:54)
[2024-10-13] MEDS ORDERED: NICOTINE 14 MG/24 HOURS TOPICAL PATCH TD ONE (13:02)
[2024-10-13] MEDS ORDERED: diazePAM 5 MG TABLET ONE (13:02)
[2024-10-13] MEDS ORDERED: PRENATAL VITAMINS W/ FOLIC ACID TABLET (FP) PO ONE (13:03)
[2024-10-13] MEDS: PRENATAL VITAMINS W/ FOLIC ACID TABLET (FP) PO SCH (13:04)
[2024-10-13] MEDS: NICOTINE 14 MG/24 HOURS TOPICAL PATCH TD SCH (13:04)
[2024-10-13] MEDS: diazePAM 5 MG TABLET PO PRN (13:04)
[2024-10-13] MEDS: cloNIDine HCL 0.1 MG TABLET PO SCH (13:50)
[2024-10-13] MEDS: MELATONIN 5 MG TABLETS PO SCH (23:02)
[2024-10-13] MEDS: traZODone HCL 50 MG TABLET (FP) PO ONE (23:02)
[2024-10-13] MEDS: THIAMINE 100 MG TABLET PO SCH (23:02)
[2024-10-14] MEDS ORDERED: methaDONE HCL 10 MG TABLET PO SCH (07:30)
[2024-10-14] MEDS: methaDONE 80 MG, methaDONE 20 MG PO SCH (07:31)
[2024-10-14] MEDS: methaDONE HCL 10 MG TABLET PO ONE (09:47)
[2024-10-14] MEDS: LIDOCAINE 4% PATCH TP SCH (09:47)
[2024-10-14] MEDS: ESCITALOPRAM OXALATE 10 MG TABLET PO SCH (09:47)
[2024-10-14 11:48] LABS: HEMATOCRIT 33.8 % (34.1-44.9); HEMOGLOBIN 10.7 g/dL (11.2-15.7); MCHC 31.7 g/dl (32.2-35.5); MEAN CELL VOLUME 86.9 fl (79.4-94.8); MEAN PLT VOLUME 10.7 fl (9.4-12.3); PLATELET COUNT 382 x10^3/uL (182-369); RDW 14.8 % (12.1-16.8)
[2024-10-14 12:00] LABS: POTASSIUM 3.5 mmol/L (3.5-5.1)
[2024-10-14 12:13] LABS: CALCIUM 8.7 mg/dL (8.5-10.1)
[2024-10-14 12:14] LABS: ALBUMIN 2.6 g/dl (3.4-5.0); BLOOD UREA NITROGEN 8.4 mg/dL (7-18)
[2024-10-14 12:15] LABS: CREATININE 0.6 mg/dL (0.55-1.3)
[2024-10-14 12:17] LABS: BILIRUBIN,TOTAL 0.4 mg/dL (0.2-1); TOT PROT 6.3 g/dl (6.4-8.2)
[2024-10-14] MEDS: LIDOCAINE PATCH REMOVAL MC SCH (22:24)
[2024-10-14] MEDS: METHOCARBAMOL 500 MG TABLET PO PRN (22:28)
[2024-10-15] MEDS ORDERED: cloNIDine HCL 0.1 MG TABLET PO PRN
[2024-10-15] MEDS: methaDONE HCL 10 MG TABLET PO ONE ×2 (10:47→11:27)
[2024-10-15] MEDS: NICOTINE POLACRILEX 2 MG GUM BUC PRN (20:13)
[2024-10-16] MEDS ORDERED: methaDONE HCL 10 MG TABLET PO ONE (10:00)
[2024-10-16] MEDS: diazePAM 5 MG TABLET PO PRN (16:53)
[2024-10-17 13:24] VITALS: BP 105/62; PULSE 81; RESP 16; TEMP 97.3
[2024-10-17] MEDS ORDERED: MELATONIN 5 MG TABLETS PO SCH (22:00)
[2024-10-18] MEDS ORDERED: methaDONE HCL 10 MG TABLET PO ONE (10:00)
== END 2024-10-17 15:52 | disposition home or self-care (01) | DRG 773 ==
LOC: YASAS 10:51 → Y3N 12:51
PROVIDERS: ADMIT Allergy & Immunology; ATTEND Allergy & Immunology
PROC: HZ2ZZZZ Detoxification Services for Substance Abuse Treatment (ICD-10-PCS; principal; 2024-10-13)
DX: F11.23 Opioid dependence with withdrawal (principal); F13.20 Sedative, hypnotic or anxiolytic dependence, uncomplicated; F14.20 Cocaine dependence, uncomplicated; F15.10 Other stimulant abuse, uncomplicated; F16.10 Hallucinogen abuse, uncomplicated; F17.210 Nicotine dependence, cigarettes, uncomplicated; F19.24 Other psychoactive substance dependence with psychoactive substance-induced mood disorder; F41.8 Other specified anxiety disorders; G40.909 Epilepsy, unspecified, not intractable, without status epilepticus; J45.20 Mild intermittent asthma, uncomplicated; Z59.02 Unsheltered homelessness
CPT/HCPCS: 36415; 80053; 80305; 80307; 81025; 85027; 86780; 93005; 93010